=== PATIENT | female | born 1935 | race African-American/Black ===

== ENCOUNTER 2017-07-01 18:17 | Inpatient (IN) ==
[2017-07-01] MEDS ORDERED: SODIUM CHLORIDE 0.9% 500 ML IV STA (18:53)
[2017-07-01] MEDS ORDERED: ASPIRIN 325 MG TABLET PO STA (18:53)
[2017-07-01] MEDS ORDERED: ALUM/MAG/SIMETH/LIDO VISC 1:1 30 ML BOTTLE PO STA (18:53)
[2017-07-01] MEDS ORDERED: ONDANSETRON 4 MG/2 ML VIAL IV STA (18:53)
[2017-07-01] MEDS ORDERED: MORPHINE 2 MG/1 ML SYRINGE IV STA (18:53)
[2017-07-01] MEDS ORDERED: NITROGLYCERIN 2% OINT 1 INCH/GM PACK TOP STA (18:53)
[2017-07-01 19:00] LABS: Basophils % 0.3 % (0.0-0.8); Eosinophils # 0.4 10*3/uL (0.0-0.87); Eosinophils % 3.8 % (0.00-10.9); Hematocrit 26.5 VOL% (35.7-47.0); Hemoglobin 9.1 GM/DL (12.0-16.0); Immature Granulocytes % 0.5 %; Immature Granulocytes Absolute 0.06 #; Lymphocytes # 2.5 10*3/uL (1.4-4.0); Lymphocytes % 21.2 % (21.3-54.2); Mean Corpuscular HGB Conc 34.3 GM/DL (32-36); Mean Corpuscular Hemoglobin 34 PG (27-34); Mean Corpuscular Volume 98.9 FL (87-102); Mean Platelet Volume 11.1 FL (9.6-12.0); Monocytes # 0.9 10*3/uL (0.11-0.8); Monocytes % 7.5 % (1.7-12.7); Neutrophils # 7.8 10*3/uL (1.4-7.4); Neutrophils % 66.7 % (38.7-73.9); Platelet Count 265 T/CUMM (130-400); Red Blood Count 2.68 MC/CUMM (3.8-5.5); Red Cell Distribution Width 13.5 % (9.3-17.3); White Blood Count 11.7 T/CUMM (4-12)
[2017-07-01 19:10] LABS: PT Patient Result 10.5 SECS
[2017-07-01] MEDS ORDERED: ASPIRIN 325 MG TABLET ONE (19:10)
[2017-07-01] MEDS ORDERED: ONDANSETRON 4 MG/2 ML VIAL ONE (19:10)
[2017-07-01] MEDS ORDERED: NITROGLYCERIN 2% OINT 1 INCH/GM PACK TOP ONE (19:10)
[2017-07-01] MEDS ORDERED: MORPHINE 2 MG/1 ML SYRINGE ONE (19:10)
[2017-07-01] MEDS ORDERED: ALUM/MAG/SIMETH/LIDO VISC 1:1 30 ML BOTTLE PO ONE ×2 (19:11→21:59)
[2017-07-01 19:22] LABS: Alanine Aminotransferase 23 U/L (13-56); Albumin 3.2 G/DL (3.4-5.0); Alkaline Phosphatase 66 U/L (45-117); Aspartate Amino Transferase 20 U/L (0-37); Bilirubin,Total < 0.39 MG/DL (0.2-1.0); Blood Urea Nitrogen 38 MG/DL (7-18); Calcium 10.1 MG/DL (8.5-10.1); Glucose 94 MG/DL (74-106); Sodium 143 MMOL/L (136-145); Total Protein 7.1 G/DL (6.4-8.3)
[2017-07-01] MEDS ORDERED: POTASSIUM CHLORIDE 20 MEQ TABLET PO STA (19:31)
[2017-07-01 19:48] LABS: Apearance,Urine CLEAR (Clear); Bacteria,Urine Occasional /HPF (Few); Bilirubin,Urine Negative (Negative); Blood, Urine Negative (Negative); Glucose,Urine (UA) Negative (Negative); Hyaline Casts,Urine 5 /LPF (0-3); Ketones,Urine Negative (Negative); Mucus,Urine Occasional /LPF (Occasional); Nitrite,Urine Negative (Negative); Protein,Urine 30 MG/DL; Squamous Epithelial Cell,Urine Occasional /HPF (0-10); Urine Color Yellow (Yellow); Urine Specific Gravity 1.013 (1.001-1.035); Urine Urobilinogen < 2.0 EU/DL (0.2-1.0); WBC,Urine <1 /HPF (0-6)
[2017-07-01] MEDS ORDERED: POTASSIUM CHLORIDE 20 MEQ TABLET PO ONE (19:49)
[2017-07-01] MEDS ORDERED: ENOXAPARIN 100 MG/ML SYRINGE SUBCUT STA (20:13)
[2017-07-01] MEDS ORDERED: ENOXAPARIN 60 MG/0.6 ML SYRINGE ONE (20:21)
[2017-07-01] MEDS ORDERED: ACETAMINOPHEN 325 MG TABLET PO PRN (21:59)
[2017-07-01] MEDS ORDERED: DEXTROSE 50% 25 GM/50 ML VIAL IV PRN (21:59)
[2017-07-01] MEDS ORDERED: GLUCAGON 1 MG VIAL IM PRN (21:59)
[2017-07-01] MEDS ORDERED: LACTULOSE 20 GM/30 ML UDCUP PO PRN (21:59)
[2017-07-01] MEDS: METOPROLOL TARTRATE 25 MG TABLET PO SCH (21:59)
[2017-07-01] MEDS ORDERED: ZALEPLON 5 MG CAPSULE PO PRN (21:59)
[2017-07-01] MEDS ORDERED: ONDANSETRON 4 MG/2 ML VIAL IV PRN (21:59)
[2017-07-01] MEDS: sulfaSALAzine 500 MG TABLET PO SCH (23:23)
[2017-07-01] MEDS: PANTOPRAZOLE 40 MG TABLET PO SCH (23:23)
[2017-07-01] MEDS: ATORVASTATIN 20 MG TABLET PO SCH (23:24)
[2017-07-01] MEDS: INSULIN LISPRO 100 UNIT/ML SUBCUT SCH (23:24)
[2017-07-01] MEDS: INSULIN NPH/REGULAR 70/30 100 UNIT/ML SUBCUT SCH (23:25)
[2017-07-01] MEDS: SODIUM CHLOR 0.9% KCL 40 MEQ 40 MEQ/1,000 ML BAG IV SCH (23:25)
[2017-07-02 01:09] LABS: Basophils % 0.2 % (0.0-0.8); Eosinophils % 0.2 % (0.00-10.9); Hematocrit 24.8 VOL% (35.7-47.0); Hemoglobin 8.6 GM/DL (12.0-16.0); Immature Granulocytes % 0.5 %; Immature Granulocytes Absolute 0.05 #; Lymphocytes # 1.5 10*3/uL (1.4-4.0); Lymphocytes % 14.7 % (21.3-54.2); Mean Corpuscular HGB Conc 34.7 GM/DL (32-36); Mean Corpuscular Hemoglobin 34 PG (27-34); Mean Corpuscular Volume 99.2 FL (87-102); Mean Platelet Volume 11.1 FL (9.6-12.0); Monocytes # 0.4 10*3/uL (0.11-0.8); Monocytes % 4.3 % (1.7-12.7); Neutrophils # 8.3 10*3/uL (1.4-7.4); Neutrophils % 80.1 % (38.7-73.9); Platelet Count 228 T/CUMM (130-400); Red Cell Distribution Width 13.3 % (9.3-17.3); White Blood Count 10.3 T/CUMM (4-12)
[2017-07-02 01:41] LABS: Calcium 9.6 MG/DL (8.5-10.1); Potassium 5.4 MMOL/L (3.5-5.1); Risk Ratio 4.49; VLDL CHOLESTEROL 35.8 MG/DL
[2017-07-02] MEDS: SODIUM CHLOR 0.9% KCL 40 MEQ 40 MEQ/1,000 ML BAG IV SCH ×2 (05:55→16:05)
[2017-07-02 09:09] LABS: Troponin I Only 0.047 NG/ML (0.00-0.045)
[2017-07-02] MEDS ORDERED: SODIUM CHLORIDE 0.9% 250 ML IV PRN ×2 (10:42→12:09)
[2017-07-02 10:57] LABS: Hematocrit 27.8 VOL% (35.7-47.0); Hemoglobin 9.3 GM/DL (12.0-16.0)
[2017-07-02] MEDS: INSULIN NPH/REGULAR 70/30 100 UNIT/ML SUBCUT SCH ×2 (11:40→21:30)
[2017-07-02] MEDS: HYDROXYCHLOROQUINE 200 MG TABLET PO SCH ×2 (11:40→17:06)
[2017-07-02] MEDS: sulfaSALAzine 500 MG TABLET PO SCH ×2 (13:01→21:30)
[2017-07-02] MEDS: ALLOPURINOL 300 MG TABLET PO SCH (13:01)
[2017-07-02] MEDS: PANTOPRAZOLE 40 MG TABLET PO SCH ×2 (13:01→21:30)
[2017-07-02] MEDS: FOLIC ACID 1 MG TABLET PO SCH (13:01)
[2017-07-02] MEDS: ASPIRIN EC 81 MG TABLET PO SCH (13:02)
[2017-07-02] MEDS: INSULIN LISPRO 100 UNIT/ML SUBCUT SCH ×3 (13:04→21:30)
[2017-07-02] MEDS: amLODIPine 5 MG TABLET PO SCH (18:04)
[2017-07-02 19:03] LABS: Hematocrit 35.1 VOL% (35.7-47.0)
[2017-07-02 19:05] LABS: Hemoglobin 11.7 GM/DL (12.0-16.0)
[2017-07-02] MEDS: METOPROLOL TARTRATE 25 MG TABLET PO SCH (19:36)
[2017-07-02] MEDS ORDERED: ENOXAPARIN 40 MG/0.4 ML SYRINGE SUBCUT SCH (21:00)
[2017-07-02] MEDS: ATORVASTATIN 20 MG TABLET PO SCH (21:29)
[2017-07-02] MEDS: METOPROLOL TARTRATE 50 MG TABLET PO SCH (21:30)
[2017-07-03 03:50] LABS: Basophils % 0.4 % (0.0-0.8); Eosinophils # 0.5 10*3/uL (0.0-0.87); Eosinophils % 5.5 % (0.00-10.9); Hematocrit 34.9 VOL% (35.7-47.0); Hemoglobin 11.7 GM/DL (12.0-16.0); Immature Granulocytes % 0.1 %; Immature Granulocytes Absolute 0.01 #; Lymphocytes # 2.2 10*3/uL (1.4-4.0); Lymphocytes % 26.8 % (21.3-54.2); Mean Corpuscular HGB Conc 33.5 GM/DL (32-36); Mean Corpuscular Hemoglobin 33 PG (27-34); Mean Corpuscular Volume 97.2 FL (87-102); Mean Platelet Volume 11.9 FL (9.6-12.0); Monocytes # 0.7 10*3/uL (0.11-0.8); Monocytes % 7.9 % (1.7-12.7); Neutrophils # 4.9 10*3/uL (1.4-7.4); Neutrophils % 59.3 % (38.7-73.9); Platelet Count 204 T/CUMM (130-400); Red Blood Count 3.59 MC/CUMM (3.8-5.5); Red Cell Distribution Width 15.2 % (9.3-17.3); White Blood Count 8.3 T/CUMM (4-12)
[2017-07-03 04:23] LABS: Calcium 9.8 MG/DL (8.5-10.1); Potassium 4.5 MMOL/L (3.5-5.1)
[2017-07-03] MEDS ORDERED: POTASSIUM CHLORIDE RIDER 10 MEQ in PREMIX 1 EACH IV PRN (08:20)
[2017-07-03] MEDS ORDERED: MAGNESIUM SULF RIDER 2 GM in PREMIX 1 EACH IV PRN (08:20)
[2017-07-03] MEDS ORDERED: diphenhydrAMINE CAP 50 MG CAPSULE PO ONE (08:30)
[2017-07-03] MEDS ORDERED: SODIUM CHLORIDE 0.9% 1,000 ML IV SCH (08:30)
[2017-07-03] MEDS ORDERED: LIDOCAINE 1% 20 ML VIAL ONE (08:55)
[2017-07-03] MEDS ORDERED: fentaNYL 100 MCG/2 ML VIAL ONE (08:55)
[2017-07-03] MEDS ORDERED: HEPARIN/NACL 0.9% 2 UNITS/ML 1,000 ML IV ONE (08:55)
[2017-07-03] MEDS ORDERED: MIDAZOLAM 2 MG/2 ML VIAL ONE (08:55)
[2017-07-03] MEDS ORDERED: DIAZEPAM 5 MG TABLET PO ONE (09:02)
[2017-07-03] MEDS ORDERED: DIAZEPAM 5 MG TABLET ONE (09:04)
[2017-07-03] MEDS: PANTOPRAZOLE 40 MG TABLET PO SCH ×2 (09:07→21:21)
[2017-07-03] MEDS: METOPROLOL TARTRATE 50 MG TABLET PO SCH ×2 (09:07→21:21)
[2017-07-03] MEDS: ASPIRIN EC 81 MG TABLET PO SCH (09:07)
[2017-07-03] MEDS: amLODIPine 5 MG TABLET PO SCH (09:07)
[2017-07-03] MEDS ORDERED: VERAPAMIL 5 MG/2 ML VIAL ONE (09:23)
[2017-07-03] MEDS ORDERED: NITROGLYCERIN DRIP 50 MG/250 ML BOTTLE IV ONE (09:23)
[2017-07-03] MEDS ORDERED: ENOXAPARIN 60 MG/0.6 ML SYRINGE ONE (09:34)
[2017-07-03] MEDS: INSULIN LISPRO 100 UNIT/ML SUBCUT SCH ×4 (11:39→23:08)
[2017-07-03] MEDS: HYDROXYCHLOROQUINE 200 MG TABLET PO SCH ×2 (11:40→16:38)
[2017-07-03] MEDS: ALLOPURINOL 300 MG TABLET PO SCH (12:06)
[2017-07-03] MEDS: INSULIN NPH/REGULAR 70/30 100 UNIT/ML SUBCUT SCH ×2 (12:06→23:08)
[2017-07-03] MEDS: FOLIC ACID 1 MG TABLET PO SCH (12:06)
[2017-07-03] MEDS: sulfaSALAzine 500 MG TABLET PO SCH ×2 (12:06→21:21)
[2017-07-03] MEDS: ATORVASTATIN 20 MG TABLET PO SCH (21:21)
[2017-07-04 05:42] LABS: Basophils % 0.2 % (0.0-0.8); Eosinophils # 0.6 10*3/uL (0.0-0.87); Eosinophils % 6.4 % (0.00-10.9); Hematocrit 35.8 VOL% (35.7-47.0); Hemoglobin 12.1 GM/DL (12.0-16.0); Immature Granulocytes % 0.4 %; Immature Granulocytes Absolute 0.04 #; Lymphocytes # 1.8 10*3/uL (1.4-4.0); Lymphocytes % 19.9 % (21.3-54.2); Mean Corpuscular HGB Conc 33.8 GM/DL (32-36); Mean Corpuscular Hemoglobin 33 PG (27-34); Mean Corpuscular Volume 96.2 FL (87-102); Mean Platelet Volume 10.9 FL (9.6-12.0); Monocytes # 0.7 10*3/uL (0.11-0.8); Monocytes % 8.1 % (1.7-12.7); Neutrophils # 5.8 10*3/uL (1.4-7.4); Platelet Count 195 T/CUMM (130-400); Red Blood Count 3.72 MC/CUMM (3.8-5.5); Red Cell Distribution Width 14.6 % (9.3-17.3)
[2017-07-04 06:15] LABS: Calcium 9.7 MG/DL (8.5-10.1); Osmolality,Calculated 286.1 MOS/KG (273-304); Potassium 3.9 MMOL/L (3.5-5.1)
[2017-07-04] MEDS ORDERED: PROPOFOL 200 MG/20 ML VIAL IV ONE (11:14)
[2017-07-04] MEDS ORDERED: LIDOCAINE 2% 5 ML VIAL ONE (11:14)
[2017-07-04] MEDS: INSULIN LISPRO 100 UNIT/ML SUBCUT SCH ×2 (11:24→13:02)
[2017-07-04 12:06] VITALS: BP 166/82
[2017-07-04] MEDS: HYDROXYCHLOROQUINE 200 MG TABLET PO SCH (13:00)
[2017-07-04] MEDS: FOLIC ACID 1 MG TABLET PO SCH (13:00)
[2017-07-04] MEDS: PANTOPRAZOLE 40 MG TABLET PO SCH (13:01)
[2017-07-04] MEDS: sulfaSALAzine 500 MG TABLET PO SCH (13:01)
[2017-07-04] MEDS: METOPROLOL TARTRATE 50 MG TABLET PO SCH (13:01)
[2017-07-04] MEDS: amLODIPine 5 MG TABLET PO SCH (13:01)
[2017-07-04] MEDS: ALLOPURINOL 300 MG TABLET PO SCH (13:01)
[2017-07-04] MEDS: INSULIN NPH/REGULAR 70/30 100 UNIT/ML SUBCUT SCH (13:02)
[2017-07-04] MEDS: ASPIRIN EC 81 MG TABLET PO SCH (13:02)
== END 2017-07-04 13:49 | disposition home or self-care (01) | DRG 282 ==
LOC: EDUNIT# → EDBD → N.ED 18:17 → N.EDINP 20:45 → N.TELEN 21:12
PROVIDERS: ADMIT Internal Medicine; ATTEND Internal Medicine
PROC: CLCCHCL (ICD-10-PCS; 2017-07-03 09:15)

== ENCOUNTER 2018-09-30 10:05 | Observation (INO) ==
[2018-09-30 10:48] LABS: Basophils % 0.2 % (0.0-0.8); Eosinophils # 0.3 10*3/uL (0.0-0.87); Hematocrit 29.8 VOL% (35.7-47.0); Hemoglobin 9.8 GM/DL (12.0-16.0); Immature Granulocytes % 0.2 %; Immature Granulocytes Absolute 0.02 #; Lymphocytes # 1.2 10*3/uL (1.4-4.0); Mean Corpuscular HGB Conc 32.9 GM/DL (32-36); Mean Corpuscular Hemoglobin 34 PG (27-34); Mean Corpuscular Volume 103.5 FL (87-102); Mean Platelet Volume 11.6 FL (9.6-12.0); Monocytes # 0.5 10*3/uL (0.11-0.8); Monocytes % 6.4 % (1.7-12.7); Neutrophils # 6.3 10*3/uL (1.4-7.4); Neutrophils % 76.2 % (38.7-73.9); Platelet Count 267 T/CUMM (130-400); Red Blood Count 2.88 MC/CUMM (3.8-5.5); Red Cell Distribution Width 14.3 % (9.3-17.3); White Blood Count 8.3 T/CUMM (4-12)
[2018-09-30 10:58] LABS: PT Patient Result 10.6 SECS; Partial Thromboplastin Time 22.9 SECS (0-40)
[2018-09-30 11:07] LABS: Alanine Aminotransferase 43 U/L (13-56); Alkaline Phosphatase 67 U/L (45-117); Aspartate Amino Transferase 39 U/L (0-37); Bilirubin,Total < 0.39 MG/DL (0.2-1.0); Blood Urea Nitrogen 27 MG/DL (7-18); Calcium 9.3 MG/DL (8.5-10.1); Glucose 56 MG/DL (74-106); Osmolality,Calculated 283.3 MOS/KG (273-304); Sodium 141 MMOL/L (136-145); Total Protein 7.5 G/DL (6.4-8.3); Troponin I < 0.015 NG/ML (0.00-0.045)
[2018-09-30] MEDS ORDERED: ASPIRIN 325 MG TABLET PO STA (11:52)
[2018-09-30] MEDS ORDERED: ENOXAPARIN 100 MG/ML SYRINGE SUBCUT STA (11:52)
[2018-09-30] MEDS ORDERED: DOCUSATE SODIUM 100 MG CAPSULE PO PRN (12:56)
[2018-09-30] MEDS ORDERED: ONDANSETRON 4 MG/2 ML VIAL IV PRN (12:56)
[2018-09-30] MEDS ORDERED: ACETAMINOPHEN 325 MG TABLET PO PRN (12:56)
[2018-09-30] MEDS ORDERED: DEXTROSE 50% 25 GM/50 ML VIAL IV PRN (12:56)
[2018-09-30] MEDS ORDERED: GLUCAGON 1 MG VIAL IM PRN (12:56)
[2018-09-30] MEDS ORDERED: amLODIPine 5 MG TABLET PO PRN (13:00)
[2018-09-30] MEDS ORDERED: NITROGLYCERIN SL 0.4 MG TABLET SL PRN (13:11)
[2018-09-30] MEDS ORDERED: MORPHINE 4 MG/1 ML VIAL IV PRN (13:11)
[2018-09-30] MEDS: SERTRALINE 25 MG TABLET PO SCH ×2 (16:14→22:25)
[2018-09-30] MEDS: INSULIN LISPRO 100 UNIT/ML SUBCUT SCH ×3 (16:33→22:24)
[2018-09-30] MEDS: ACEBUTOLOL 200 MG CAPSULE PO SCH (17:16)
[2018-09-30] MEDS ORDERED: INSULIN LISPRO 100 UNIT/ML SUBCUT SCH (19:00)
[2018-09-30] MEDS ORDERED: METOPROLOL TARTRATE 50 MG TABLET PO SCH (21:00)
[2018-09-30] MEDS ORDERED: ATORVASTATIN 80 MG TABLET PO SCH (21:00)
[2018-10-01 05:29] LABS: Basophils % 0.3 % (0.0-0.8); Eosinophils # 0.5 10*3/uL (0.0-0.87); Hematocrit 27.5 VOL% (35.7-47.0); Hemoglobin 8.9 GM/DL (12.0-16.0); Immature Granulocytes % 0.4 %; Immature Granulocytes Absolute 0.03 #; Lymphocytes # 1.6 10*3/uL (1.4-4.0); Lymphocytes % 23.4 % (21.3-54.2); Mean Corpuscular HGB Conc 32.4 GM/DL (32-36); Mean Corpuscular Hemoglobin 34 PG (27-34); Mean Corpuscular Volume 103.4 FL (87-102); Monocytes # 0.6 10*3/uL (0.11-0.8); Monocytes % 8.7 % (1.7-12.7); Neutrophils % 60.2 % (38.7-73.9); Platelet Count 225 T/CUMM (130-400); Red Blood Count 2.66 MC/CUMM (3.8-5.5); Red Cell Distribution Width 14.3 % (9.3-17.3); White Blood Count 6.7 T/CUMM (4-12)
[2018-10-01 05:55] LABS: Calcium 9.3 MG/DL (8.5-10.1); Ferritin 643.7 ng/ml (8-252); Osmolality,Calculated 288.7 MOS/KG (273-304); Potassium 3.9 MMOL/L (3.5-5.1); Risk Ratio 6.82; VLDL CHOLESTEROL 41.2 MG/DL
[2018-10-01 05:57] LABS: Calcium 9.3 MG/DL (8.5-10.1); Osmolality,Calculated 285.8 MOS/KG (273-304); Potassium 3.8 MMOL/L (3.5-5.1)
[2018-10-01 06:07] LABS: Folate 21.1 NG/ML (5.4-24.0); Vitamin B12 366 PG/ML (211-911)
[2018-10-01] MEDS: INSULIN LISPRO 100 UNIT/ML SUBCUT SCH ×3 (08:30→11:52)
[2018-10-01] MEDS ORDERED: DEXTROSE 50% 25 GM/50 ML SYRINGE IV ONE (08:38)
[2018-10-01] MEDS ORDERED: LOSARTAN 50 MG TABLET PO SCH (09:00)
[2018-10-01] MEDS ORDERED: INSULIN GLARGINE 100 UNIT/ML SUBCUT SCH (09:00)
[2018-10-01] MEDS ORDERED: FOLIC ACID 1 MG TABLET PO SCH (09:00)
[2018-10-01] MEDS ORDERED: MULTIVITAMIN (CENTRUM) TABLET PO SCH (09:00)
[2018-10-01] MEDS ORDERED: ENOXAPARIN 40 MG/0.4 ML SYRINGE SUBCUT SCH (09:00)
[2018-10-01] MEDS ORDERED: PANTOPRAZOLE 40 MG TABLET PO SCH (09:00)
[2018-10-01] MEDS ORDERED: ASPIRIN EC 81 MG TABLET PO SCH (09:00)
[2018-10-01] MEDS ORDERED: SPIRONOLACTONE 25 MG TABLET PO SCH (09:00)
[2018-10-01 09:05] LABS: Sedimentation Rate-Westergren 79 MM/HR (0-30)
[2018-10-01] MEDS: ACEBUTOLOL 200 MG CAPSULE PO SCH (11:40)
[2018-10-01] MEDS: METHOTREXATE 2.5 MG TABLET PO SCH ×2 (11:52→13:13)
[2018-10-01 12:20] VITALS: BP 148/87
== END 2018-10-01 15:47 | disposition home or self-care (01) ==
LOC: EDUNIT# → EDBD → N.EDINP 10:05 → N.ED 10:05 → SUATTDRO 12:05 → N.TELES 13:38
PROVIDERS: ADMIT Hospitalist; ATTEND Internal Medicine

== ENCOUNTER 2020-02-29 20:48 | Inpatient (IN) ==
[2020-02-29] MEDS ORDERED: ONDANSETRON 4 MG/2 ML VIAL IV STA (21:23)
[2020-02-29] MEDS ORDERED: ASPIRIN 325 MG TABLET PO STA (21:23)
[2020-02-29] MEDS ORDERED: MORPHINE 4 MG/1 ML VIAL IV STA (21:23)
[2020-02-29] MEDS ORDERED: ALUM/MAG/SIMETH/LIDO VISC 1:1 30 ML BOTTLE PO STA (21:23)
[2020-02-29 21:37] LABS: Basophils % 0.2 % (0.0-0.8); Eosinophils % 0.1 % (0.00-10.9); Hematocrit 27.8 VOL% (35.7-47.0); Hemoglobin 9.1 GM/DL (12.0-16.0); Immature Granulocytes % 0.5 %; Immature Granulocytes Absolute 0.05 #; Lymphocytes # 0.4 10*3/uL (1.4-4.0); Lymphocytes % 3.4 % (21.3-54.2); Mean Corpuscular HGB Conc 32.7 GM/DL (32-36); Mean Corpuscular Volume 99.3 FL (87-102); Mean Platelet Volume 10.4 FL (9.6-12.0); Monocytes % 4.9 % (1.7-12.7); Neutrophils % 90.9 % (38.7-73.9); Platelet Count 215 T/CUMM (130-400); Red Cell Distribution Width 13.8 % (9.3-17.3); White Blood Count 10.9 T/CUMM (4-12)
[2020-02-29 21:57] LABS: PT Patient Result 11.1 SECS (9.8-11.9)
[2020-02-29 21:59] LABS: Ferritin 735.5 ng/ml (8-252); Troponin I < 0.015 NG/ML (0.00-0.045)
[2020-02-29 22:04] LABS: Albumin 3.2 G/DL (3.4-5.0); Bilirubin,Total 0.4 MG/DL (0.2-1.0); Calcium 10.1 MG/DL (8.5-10.1); Osmolality,Calculated 282.7 MOS/KG (273-304); Total Protein 7.9 G/DL (6.4-8.3)
[2020-02-29] MEDS ORDERED: ENOXAPARIN 100 MG/ML SYRINGE SUBCUT STA (22:24)
[2020-02-29] MEDS ORDERED: ENOXAPARIN 60 MG/0.6 ML SYRINGE ONE (22:28)
[2020-02-29 23:14] LABS: Band Neutrophils 3 % (0-10); Lymphocytes 8 % (20-55); Segmented Neutrophils 85 % (50-85); Total Cells Counted 100
[2020-02-29 23:15] LABS: Anisocytosis 1+; Platelet Estimate Normal
[2020-02-29] MEDS ORDERED: PIPERACILLIN/TAZOBACTAM 3,375 MG in SODIUM CHLORIDE 0.9% 100 ML IV STA (23:21)
[2020-02-29] MEDS ORDERED: guaiFENesin/DM ER 600-30 MG TABLET PO PRN (23:36)
[2020-02-29] MEDS ORDERED: MORPHINE 4 MG/1 ML VIAL IV PRN (23:36)
[2020-02-29] MEDS ORDERED: diphenhydrAMINE CAP 25 MG CAPSULE PO PRN (23:36)
[2020-02-29] MEDS ORDERED: DEXTROSE 50% 25 GM/50 ML VIAL IV PRN ×2 (23:36)
[2020-02-29] MEDS ORDERED: NICOTINE 21 MG/24 HR PATCH TRANSDERM PRN (23:36)
[2020-02-29] MEDS ORDERED: ONDANSETRON 4 MG/2 ML VIAL IV PRN (23:36)
[2020-02-29] MEDS ORDERED: hydrALAZINE 20 MG/1 ML VIAL IV PRN (23:36)
[2020-02-29] MEDS ORDERED: GLUCAGON 1 MG VIAL IM PRN (23:36)
[2020-02-29] MEDS ORDERED: ACETAMINOPHEN 325 MG TABLET PO PRN (23:36)
[2020-03-01] MEDS: ALBUTEROL/IPRATROPIUM 3 ML NEB RESP TX SCH ×4 (00:30→19:45)
[2020-03-01] MEDS: INSULIN REGULAR 100 UNIT/ML SUBCUT SCH ×5 (01:09→23:30)
[2020-03-01 07:09] LABS: Apearance,Urine CLEAR (Clear); Bilirubin,Urine Negative (Negative); Blood, Urine Negative (Negative); Glucose,Urine (UA) 50 mg/dL (Negative); Ketones,Urine Negative (Negative); Mucus,Urine Occasional /LPF (Occasional); Nitrite,Urine Positive (Negative); Protein,Urine 100 MG/DL; RBC,Urine 7 /HPF (0-4); Squamous Epithelial Cell,Urine Occasional /HPF (0-10); Urine Color Straw (Yellow); Urine Specific Gravity 1.031 (1.001-1.035); Urine Urobilinogen < 2.0 EU/DL (0.2-1.0); WBC,Urine 16 /HPF (0-6)
[2020-03-01] MEDS: PIPERACILLIN/TAZOBACTAM 3,375 MG in SODIUM CHLORIDE 0.9% 100 ML IV SCH ×3 (07:36→23:29)
[2020-03-01] MEDS: ASPIRIN 325 MG TABLET PO SCH (09:11)
[2020-03-01] MEDS ORDERED: predniSONE 5 MG TABLET PO PRN (14:37)
[2020-03-01] MEDS ORDERED: NITROGLYCERIN SL 0.4 MG TABLET SL ONE (15:04)
[2020-03-01] MEDS ORDERED: MORPHINE 4 MG/1 ML VIAL IV PRN (15:05)
[2020-03-01] MEDS: ROSUVASTATIN 20 MG TABLET PO SCH (20:46)
[2020-03-01] MEDS: SERTRALINE 25 MG TABLET PO SCH (20:48)
[2020-03-02] MEDS: ALBUTEROL/IPRATROPIUM 3 ML NEB RESP TX SCH ×4 (01:27→19:05)
[2020-03-02 05:34] LABS: Basophils % 0.2 % (0.0-0.8); Eosinophils # 0.3 10*3/uL (0.0-0.87); Hematocrit 25.9 VOL% (35.7-47.0); Hemoglobin 8.3 GM/DL (12.0-16.0); Immature Granulocytes % 0.5 %; Immature Granulocytes Absolute 0.05 #; Lymphocytes # 1.2 10*3/uL (1.4-4.0); Lymphocytes % 11.9 % (21.3-54.2); Mean Corpuscular Volume 100.8 FL (87-102); Monocytes % 8.5 % (1.7-12.7); Neutrophils % 75.9 % (38.7-73.9); Platelet Count 203 T/CUMM (130-400); Red Blood Count 2.57 MC/CUMM (3.8-5.5); Red Cell Distribution Width 14.1 % (9.3-17.3); White Blood Count 9.9 T/CUMM (4-12)
[2020-03-02 06:00] LABS: Calcium 9.5 MG/DL (8.5-10.1); Osmolality,Calculated 292.4 MOS/KG (273-304)
[2020-03-02] MEDS: PANTOPRAZOLE 40 MG TABLET PO SCH (06:01)
[2020-03-02] MEDS: INSULIN REGULAR 100 UNIT/ML SUBCUT SCH ×3 (06:25→17:00)
[2020-03-02] MEDS: FOLIC ACID 1 MG TABLET PO SCH (08:57)
[2020-03-02] MEDS: ASPIRIN 325 MG TABLET PO SCH (08:57)
[2020-03-02] MEDS: DOXYCYCLINE HYCLATE 100 MG CAPSULE PO SCH ×2 (08:58→20:36)
[2020-03-02] MEDS: FERROUS SULFATE 325 MG TABLET PO SCH (08:58)
[2020-03-02] MEDS: ACEBUTOLOL 200 MG CAPSULE PO SCH (08:58)
[2020-03-02] MEDS ORDERED: METHOTREXATE 2.5 MG TABLET PO SCH (09:00)
[2020-03-02] MEDS ORDERED: SPIRONOLACTONE 25 MG TABLET PO SCH (09:00)
[2020-03-02] MEDS: PIPERACILLIN/TAZOBACTAM 3,375 MG in SODIUM CHLORIDE 0.9% 100 ML IV SCH ×2 (09:55→14:56)
[2020-03-02] MEDS: ROSUVASTATIN 20 MG TABLET PO SCH (20:36)
[2020-03-02] MEDS: SERTRALINE 25 MG TABLET PO SCH (20:36)
[2020-03-03] MEDS: PIPERACILLIN/TAZOBACTAM 3,375 MG in SODIUM CHLORIDE 0.9% 100 ML IV SCH ×2 (00:02→08:27)
[2020-03-03] MEDS: INSULIN REGULAR 100 UNIT/ML SUBCUT SCH ×4 (00:06→17:44)
[2020-03-03] MEDS: ALBUTEROL/IPRATROPIUM 3 ML NEB RESP TX SCH ×4 (00:45→19:13)
[2020-03-03] MEDS: NITROGLYCERIN SL 0.4 MG TABLET SL PRN ×2 (02:55→03:01)
[2020-03-03 03:07] LABS: Basophils % 0.2 % (0.0-0.8); Eosinophils # 0.3 10*3/uL (0.0-0.87); Eosinophils % 2.7 % (0.00-10.9); Hematocrit 28.4 VOL% (35.7-47.0); Hemoglobin 9.3 GM/DL (12.0-16.0); Immature Granulocytes % 0.5 %; Immature Granulocytes Absolute 0.06 #; Lymphocytes # 0.8 10*3/uL (1.4-4.0); Lymphocytes % 6.6 % (21.3-54.2); Mean Corpuscular HGB Conc 32.7 GM/DL (32-36); Mean Corpuscular Volume 96.9 FL (87-102); Mean Platelet Volume 10.6 FL (9.6-12.0); Monocytes % 5.8 % (1.7-12.7); Neutrophils % 84.2 % (38.7-73.9); Platelet Count 226 T/CUMM (130-400); Red Blood Count 2.93 MC/CUMM (3.8-5.5); Red Cell Distribution Width 13.9 % (9.3-17.3); White Blood Count 11.4 T/CUMM (4-12)
[2020-03-03 03:27] LABS: Calcium 9.7 MG/DL (8.5-10.1); Osmolality,Calculated 286.7 MOS/KG (273-304)
[2020-03-03] MEDS: PANTOPRAZOLE 40 MG TABLET PO SCH (05:57)
[2020-03-03] MEDS: FERROUS SULFATE 325 MG TABLET PO SCH (08:27)
[2020-03-03] MEDS: ASPIRIN 325 MG TABLET PO SCH (08:27)
[2020-03-03] MEDS: FOLIC ACID 1 MG TABLET PO SCH (08:27)
[2020-03-03] MEDS: DOXYCYCLINE HYCLATE 100 MG CAPSULE PO SCH ×2 (08:27→21:45)
[2020-03-03] MEDS: ACEBUTOLOL 200 MG CAPSULE PO SCH (08:27)
[2020-03-03] MEDS ORDERED: cefTRIAXone 2,000 MG in SYRINGE 1 EACH IV SCH (14:00)
[2020-03-03] MEDS: ROSUVASTATIN 20 MG TABLET PO SCH (21:45)
[2020-03-03] MEDS: SERTRALINE 25 MG TABLET PO SCH (21:45)
[2020-03-04] MEDS: INSULIN REGULAR 100 UNIT/ML SUBCUT SCH ×2 (00:39→06:15)
[2020-03-04] MEDS: ALBUTEROL/IPRATROPIUM 3 ML NEB RESP TX SCH ×3 (00:40→12:25)
[2020-03-04 04:35] LABS: Basophils % 0.1 % (0.0-0.8); Eosinophils # 0.3 10*3/uL (0.0-0.87); Eosinophils % 3.7 % (0.00-10.9); Hemoglobin 8.5 GM/DL (12.0-16.0); Immature Granulocytes % 0.7 %; Immature Granulocytes Absolute 0.06 #; Lymphocytes # 1.1 10*3/uL (1.4-4.0); Lymphocytes % 13.2 % (21.3-54.2); Mean Corpuscular HGB Conc 32.7 GM/DL (32-36); Mean Corpuscular Volume 98.5 FL (87-102); Mean Platelet Volume 10.8 FL (9.6-12.0); Monocytes % 4.2 % (1.7-12.7); Neutrophils % 78.1 % (38.7-73.9); Platelet Count 215 T/CUMM (130-400); Red Blood Count 2.64 MC/CUMM (3.8-5.5); Red Cell Distribution Width 13.9 % (9.3-17.3); White Blood Count 8.7 T/CUMM (4-12)
[2020-03-04 04:57] LABS: Calcium 9.4 MG/DL (8.5-10.1); Osmolality,Calculated 285.8 MOS/KG (273-304)
[2020-03-04] MEDS: PANTOPRAZOLE 40 MG TABLET PO SCH (06:34)
[2020-03-04] MEDS: FOLIC ACID 1 MG TABLET PO SCH (08:42)
[2020-03-04] MEDS: ASPIRIN 325 MG TABLET PO SCH (08:42)
[2020-03-04] MEDS: DOXYCYCLINE HYCLATE 100 MG CAPSULE PO SCH (08:42)
[2020-03-04] MEDS: FERROUS SULFATE 325 MG TABLET PO SCH (08:42)
[2020-03-04] MEDS: ACEBUTOLOL 200 MG CAPSULE PO SCH (08:43)
[2020-03-04] MEDS ORDERED: LEVOFLOXACIN 500 MG TABLET PO SCH (09:30)
[2020-03-04 12:09] VITALS: BP 174/69
== END 2020-03-04 13:52 | disposition home or self-care (01) | DRG 871 ==
LOC: N.ED 20:48 → N.EDINP 20:48 → N.TELES 03-01 13:10
PROVIDERS: ADMIT Hospitalist; ATTEND Hospitalist

== ENCOUNTER 2021-10-10 09:59 | Inpatient (IN) ==
[2021-10-10 12:03] LABS: Basophils % 0.2 % (0.0-0.8); Hematocrit 26.1 VOL% (35.7-47.0); Hemoglobin 8.8 GM/DL (12.0-16.0); Immature Granulocytes % 1.3 %; Immature Granulocytes Absolute 0.29 #; Lymphocytes # 0.6 10*3/uL (1.4-4.0); Lymphocytes % 2.5 % (21.3-54.2); Mean Corpuscular HGB Conc 33.7 GM/DL (32-36); Mean Corpuscular Volume 85.3 FL (87-102); Mean Platelet Volume 11.1 FL (9.6-12.0); Monocytes % 5.3 % (1.7-12.7); Neutrophils % 90.7 % (38.7-73.9); Platelet Count 262 T/CUMM (130-400); Red Blood Count 3.06 MC/CUMM (3.8-5.5); White Blood Count 22.7 T/CUMM (4-12)
[2021-10-10 12:10] LABS: Albumin 2.1 G/DL (3.4-5.0); Bilirubin,Total 0.8 MG/DL (0.20-1.00); Calcium 7.2 MG/DL (8.5-10.1); Osmolality,Calculated 277.4 MOS/KG (273-304); Potassium 2.9 MMOL/L (3.5-5.1); Total Protein 6.1 G/DL (6.4-8.2)
[2021-10-10 12:42] LABS: Anisocytosis 1+; Segmented Neutrophils 98 % (50-85); Total Cells Counted 100
[2021-10-10 12:43] LABS: Hypochromia Slight; Ovalocytes Slight
[2021-10-10] MEDS ORDERED: POTASSIUM CHLORIDE 20 MEQ TABLET PO STA (12:51)
[2021-10-10] MEDS ORDERED: DEXTROSE 50% 25 GM/50 ML VIAL IV PRN (12:52)
[2021-10-10] MEDS ORDERED: ONDANSETRON 4 MG/2 ML VIAL IV PRN (12:52)
[2021-10-10] MEDS ORDERED: DEXTROSE 10% 250 ML BAG IV PRN (12:52)
[2021-10-10] MEDS ORDERED: GLUCAGON 1 MG VIAL IM PRN ×2 (12:52)
[2021-10-10] MEDS: SODIUM CHLORIDE 0.9% 1,000 ML IV SCH (16:00)
[2021-10-10] MEDS: PIPERACILLIN/TAZOBACTAM 3,375 MG in SODIUM CHLORIDE 0.9% 100 ML IV SCH (16:00)
[2021-10-10] MEDS: HEPARIN 5,000 UNIT/1 ML VIAL SUBCUT SCH (16:15)
[2021-10-10 19:06] LABS: Bacteria,Urine Occasional /HPF (Few); Bilirubin,Urine Negative (Negative); Blood, Urine Moderate mg/dL (Negative); Glucose,Urine (UA) 150 mg/dL (Negative); Ketones,Urine Negative (Negative); Mucus,Urine Occasional /LPF (Occasional); Nitrite,Urine Positive (Negative); Protein,Urine 100 MG/DL; RBC,Urine 25 /HPF (0-4); Squamous Epithelial Cell,Urine Moderate /HPF (0-10); Urine Appearance CLOUDY (Clear); Urine Color Yellow (Yellow); Urine Specific Gravity 1.011 (1.001-1.035); Urine Urobilinogen < 2.0 EU/DL (<2.0)
[2021-10-10 19:55] LABS: % Iron Saturation 14.4 % (18-50)
[2021-10-10 21:15] LABS: Folate 4.11 NG/ML (5.38-24.0); Vitamin B12 > 2000 PG/ML (211-911)
[2021-10-10] MEDS: INSULIN LISPRO 100 UNIT/ML SUBCUT SCH ×2 (22:27→22:29)
[2021-10-10] MEDS: VANCOMYCIN INJ 750 MG in SODIUM CHLORIDE 0.9% 250 ML IV SCH (22:36)
[2021-10-11] MEDS: PIPERACILLIN/TAZOBACTAM 3,375 MG in SODIUM CHLORIDE 0.9% 100 ML IV SCH ×3 (00:34→15:36)
[2021-10-11] MEDS: HEPARIN 5,000 UNIT/1 ML VIAL SUBCUT SCH ×2 (00:36→13:34)
[2021-10-11 05:55] LABS: Basophils % 0.2 % (0.0-0.8); Hematocrit 23.8 VOL% (35.7-47.0); Hemoglobin 7.9 GM/DL (12.0-16.0); Immature Granulocytes Absolute 0.18 #; Lymphocytes # 0.5 10*3/uL (1.4-4.0); Lymphocytes % 2.7 % (21.3-54.2); Mean Corpuscular HGB Conc 33.2 GM/DL (32-36); Mean Corpuscular Volume 85.6 FL (87-102); Mean Platelet Volume 10.3 FL (9.6-12.0); Monocytes % 6.5 % (1.7-12.7); Neutrophils % 89.6 % (38.7-73.9); Platelet Count 190 T/CUMM (130-400); Red Blood Count 2.78 MC/CUMM (3.8-5.5); Red Cell Distribution Width 20.2 % (9.3-17.3); White Blood Count 17.9 T/CUMM (4-12)
[2021-10-11 06:18] LABS: Risk Ratio 1.88; VLDL Cholesterol 13.6 MG/DL
[2021-10-11 06:19] LABS: Albumin 1.7 G/DL (3.4-5.0); Bilirubin,Total 0.6 MG/DL (0.20-1.00); Calcium 7.3 MG/DL (8.5-10.1); Osmolality,Calculated 280.7 MOS/KG (273-304); Potassium 2.9 MMOL/L (3.5-5.1); Total Protein 5.6 G/DL (6.4-8.2)
[2021-10-11 06:21] LABS: Lymphocytes 2 % (20-55); Segmented Neutrophils 96 % (50-85); Total Cells Counted 100
[2021-10-11 06:22] LABS: Acanthocytes Few; Hypochromia 1+; Microcytosis 1+; Ovalocytes Slight
[2021-10-11] MEDS ORDERED: MAGNESIUM SULF RIDER 4 GM/100 ML PREMIX IV PRN (07:46)
[2021-10-11] MEDS ORDERED: MAGNESIUM SULF RIDER 2 GM/50 ML PREMIX IV PRN (07:46)
[2021-10-11] MEDS: INSULIN LISPRO 100 UNIT/ML SUBCUT SCH ×4 (08:19→21:37)
[2021-10-11] MEDS: POTASSIUM CHLORIDE 20 MEQ TABLET PO PRN ×3 (09:09→17:30)
[2021-10-11] MEDS: PANTOPRAZOLE 40 MG TABLET PO SCH (09:09)
[2021-10-11] MEDS: SODIUM CHLORIDE 0.9% 1,000 ML IV SCH ×2 (09:11→17:30)
[2021-10-11] MEDS: HYDROXYCHLOROQUINE 200 MG TABLET PO SCH (21:13)
[2021-10-11] MEDS: ROSUVASTATIN 20 MG TABLET PO SCH (21:13)
[2021-10-11] MEDS: MENTHOL/ZINC OXIDE OINT 71 GM JAR TOP SCH (21:13)
[2021-10-11] MEDS: SERTRALINE 25 MG TABLET PO SCH (21:13)
[2021-10-11] MEDS: VANCOMYCIN INJ 750 MG in SODIUM CHLORIDE 0.9% 250 ML IV SCH (22:57)
[2021-10-12] MEDS: PIPERACILLIN/TAZOBACTAM 3,375 MG in SODIUM CHLORIDE 0.9% 100 ML IV SCH ×3 (00:01→16:10)
[2021-10-12] MEDS: HEPARIN 5,000 UNIT/1 ML VIAL SUBCUT SCH ×2 (01:45→13:17)
[2021-10-12 06:33] LABS: Basophils % 0.2 % (0.0-0.8); Hematocrit 22.6 VOL% (35.7-47.0); Hemoglobin 7.4 GM/DL (12.0-16.0); Immature Granulocytes Absolute 0.17 #; Lymphocytes # 0.7 10*3/uL (1.4-4.0); Mean Corpuscular HGB Conc 32.7 GM/DL (32-36); Mean Corpuscular Volume 86.6 FL (87-102); Mean Platelet Volume 11.2 FL (9.6-12.0); Monocytes % 5.6 % (1.7-12.7); Neutrophils % 89.2 % (38.7-73.9); Platelet Count 212 T/CUMM (130-400); Red Blood Count 2.61 MC/CUMM (3.8-5.5); Red Cell Distribution Width 20.5 % (9.3-17.3); White Blood Count 17.1 T/CUMM (4-12)
[2021-10-12 06:57] LABS: Calcium 7.1 MG/DL (8.5-10.1); Osmolality,Calculated 285.1 MOS/KG (273-304); Potassium 2.9 MMOL/L (3.5-5.1)
[2021-10-12 07:39] LABS: Anisocytosis 1+; Band Neutrophils 2 % (0-10); Lymphocytes 7 % (20-55); Metamyelocytes 2 %; Myelocytes 1 %; Platelet Estimate Normal; Segmented Neutrophils 83 % (50-85); Total Cells Counted 100
[2021-10-12 07:40] LABS: Burr Cells Few; Ovalocytes Few; Poikilocytosis 1+
[2021-10-12] MEDS: INSULIN LISPRO 100 UNIT/ML SUBCUT SCH ×4 (08:38→21:11)
[2021-10-12] MEDS ORDERED: amLODIPine 5 MG TABLET PO SCH (09:00)
[2021-10-12] MEDS ORDERED: LOSARTAN 50 MG TABLET PO SCH (09:00)
[2021-10-12] MEDS: POTASSIUM CHLORIDE 20 MEQ TABLET PO PRN ×3 (09:39→16:16)
[2021-10-12] MEDS: POTASSIUM CHLORIDE 20 MEQ TABLET PO SCH (09:39)
[2021-10-12] MEDS: ASPIRIN EC 81 MG TABLET PO SCH (09:42)
[2021-10-12] MEDS: PANTOPRAZOLE 40 MG TABLET PO SCH (09:42)
[2021-10-12] MEDS: FERROUS SULFATE 325 MG TABLET PO SCH (09:42)
[2021-10-12] MEDS: MIDODRINE 5 MG TABLET PO SCH (09:42)
[2021-10-12] MEDS: HYDROXYCHLOROQUINE 200 MG TABLET PO SCH ×2 (09:42→21:11)
[2021-10-12] MEDS: INSULIN GLARGINE 100 UNIT/ML SUBCUT SCH (09:45)
[2021-10-12] MEDS: MENTHOL/ZINC OXIDE OINT 71 GM JAR TOP SCH ×2 (09:45→21:11)
[2021-10-12] MEDS: SODIUM CHLORIDE 0.9% 1,000 ML IV SCH ×2 (12:02→17:45)
[2021-10-12] MEDS: SERTRALINE 25 MG TABLET PO SCH (21:10)
[2021-10-12] MEDS: TOBRAMYCIN 0.3% OPH OINT 3.5 GM TUBE RIGHT EYE SCH (21:11)
[2021-10-12] MEDS: ROSUVASTATIN 20 MG TABLET PO SCH (21:11)
[2021-10-12] MEDS: VANCOMYCIN INJ 750 MG in SODIUM CHLORIDE 0.9% 250 ML IV SCH (23:00)
[2021-10-13] MEDS: HEPARIN 5,000 UNIT/1 ML VIAL SUBCUT SCH ×2 (00:43→12:45)
[2021-10-13] MEDS: SODIUM CHLORIDE 0.9% 1,000 ML IV SCH ×3 (03:03→21:01)
[2021-10-13] MEDS: PIPERACILLIN/TAZOBACTAM 3,375 MG in SODIUM CHLORIDE 0.9% 100 ML IV SCH ×2 (06:44)
[2021-10-13 07:50] LABS: Basophils % 0.1 % (0.0-0.8); Hematocrit 24.9 VOL% (35.7-47.0); Hemoglobin 8.2 GM/DL (12.0-16.0); Immature Granulocytes % 0.7 %; Immature Granulocytes Absolute 0.12 #; Lymphocytes # 0.8 10*3/uL (1.4-4.0); Lymphocytes % 4.7 % (21.3-54.2); Mean Corpuscular HGB Conc 32.9 GM/DL (32-36); Mean Corpuscular Volume 87.1 FL (87-102); Mean Platelet Volume 10.8 FL (9.6-12.0); Monocytes % 5.8 % (1.7-12.7); Neutrophils % 88.7 % (38.7-73.9); Platelet Count 234 T/CUMM (130-400); Red Blood Count 2.86 MC/CUMM (3.8-5.5); Red Cell Distribution Width 20.9 % (9.3-17.3); White Blood Count 16.3 T/CUMM (4-12)
[2021-10-13 08:03] LABS: Calcium 6.5 MG/DL (8.5-10.1); Potassium 3.6 MMOL/L (3.5-5.1)
[2021-10-13] MEDS: INSULIN GLARGINE 100 UNIT/ML SUBCUT SCH (08:47)
[2021-10-13] MEDS: INSULIN LISPRO 100 UNIT/ML SUBCUT SCH ×4 (08:57→21:01)
[2021-10-13 09:18] LABS: Anisocytosis 1+; Band Neutrophils 3 % (0-10); Burr Cells 1+; Lymphocytes 7 % (20-55); Platelet Estimate Normal; Poikilocytosis 1+; Segmented Neutrophils 84 % (50-85); Total Cells Counted 100
[2021-10-13 09:19] LABS: Ovalocytes 1+
[2021-10-13] MEDS: PANTOPRAZOLE 40 MG TABLET PO SCH (09:34)
[2021-10-13] MEDS: ASPIRIN EC 81 MG TABLET PO SCH (09:34)
[2021-10-13] MEDS: TOBRAMYCIN 0.3% OPH OINT 3.5 GM TUBE RIGHT EYE SCH ×3 (09:34→21:02)
[2021-10-13] MEDS: FERROUS SULFATE 325 MG TABLET PO SCH (09:34)
[2021-10-13] MEDS: HYDROXYCHLOROQUINE 200 MG TABLET PO SCH ×2 (09:34→21:01)
[2021-10-13] MEDS: MENTHOL/ZINC OXIDE OINT 71 GM JAR TOP SCH ×2 (09:34→21:01)
[2021-10-13] MEDS: POTASSIUM CHLORIDE 20 MEQ TABLET PO SCH (09:34)
[2021-10-13] MEDS: MIDODRINE 5 MG TABLET PO SCH (09:34)
[2021-10-13] MEDS ORDERED: VANCOMYCIN INJ 750 MG in SODIUM CHLORIDE 0.9% 250 ML IV SCH (17:00)
[2021-10-13] MEDS: SERTRALINE 25 MG TABLET PO SCH (21:01)
[2021-10-13] MEDS: ACETAMINOPHEN 325 MG TABLET PO PRN (21:02)
[2021-10-14] MEDS: HEPARIN 5,000 UNIT/1 ML VIAL SUBCUT SCH ×2 (01:32→15:19)
[2021-10-14 06:55] LABS: Basophils % 0.2 % (0.0-0.8); Hematocrit 24.1 VOL% (35.7-47.0); Hemoglobin 7.8 GM/DL (12.0-16.0); Immature Granulocytes % 0.8 %; Immature Granulocytes Absolute 0.12 #; Lymphocytes # 1.1 10*3/uL (1.4-4.0); Lymphocytes % 7.3 % (21.3-54.2); Mean Corpuscular HGB Conc 32.4 GM/DL (32-36); Mean Corpuscular Volume 87.6 FL (87-102); Mean Platelet Volume 11.4 FL (9.6-12.0); Monocytes % 6.8 % (1.7-12.7); Neutrophils % 84.9 % (38.7-73.9); Platelet Count 255 T/CUMM (130-400); Red Blood Count 2.75 MC/CUMM (3.8-5.5); Red Cell Distribution Width 21.5 % (9.3-17.3); White Blood Count 15.3 T/CUMM (4-12)
[2021-10-14] MEDS: ASPIRIN EC 81 MG TABLET PO SCH (08:33)
[2021-10-14] MEDS: FERROUS SULFATE 325 MG TABLET PO SCH (08:33)
[2021-10-14] MEDS: PANTOPRAZOLE 40 MG TABLET PO SCH (08:33)
[2021-10-14] MEDS: TOBRAMYCIN 0.3% OPH OINT 3.5 GM TUBE RIGHT EYE SCH ×3 (08:33→20:56)
[2021-10-14] MEDS: POTASSIUM CHLORIDE 20 MEQ TABLET PO SCH (08:33)
[2021-10-14] MEDS: HYDROXYCHLOROQUINE 200 MG TABLET PO SCH ×2 (08:33→20:56)
[2021-10-14] MEDS: MIDODRINE 5 MG TABLET PO SCH (08:33)
[2021-10-14] MEDS: MENTHOL/ZINC OXIDE OINT 71 GM JAR TOP SCH ×2 (08:34→20:57)
[2021-10-14 08:58] LABS: Calcium 6.4 MG/DL (8.5-10.1); Osmolality,Calculated 277.1 MOS/KG (273-304); Potassium 4.6 MMOL/L (3.5-5.1)
[2021-10-14] MEDS: INSULIN LISPRO 100 UNIT/ML SUBCUT SCH ×4 (09:19→20:57)
[2021-10-14] MEDS: LOPERAMIDE 2 MG CAPSULE PO PRN ×3 (09:58→20:57)
[2021-10-14] MEDS: SODIUM CHLORIDE 0.9% 1,000 ML IV SCH ×2 (15:36→16:47)
[2021-10-14] MEDS: ACETAMINOPHEN 325 MG TABLET PO PRN (17:28)
[2021-10-14] MEDS: SERTRALINE 25 MG TABLET PO SCH (20:56)
[2021-10-15] MEDS: HEPARIN 5,000 UNIT/1 ML VIAL SUBCUT SCH ×2 (02:17→13:53)
[2021-10-15] MEDS: SODIUM CHLORIDE 0.9% 1,000 ML IV SCH ×2 (02:17→13:53)
[2021-10-15] MEDS: ACETAMINOPHEN 325 MG TABLET PO PRN (07:07)
[2021-10-15] MEDS: INSULIN LISPRO 100 UNIT/ML SUBCUT SCH ×2 (07:42→12:19)
[2021-10-15] MEDS: ASPIRIN EC 81 MG TABLET PO SCH (08:46)
[2021-10-15] MEDS: MENTHOL/ZINC OXIDE OINT 71 GM JAR TOP SCH (08:46)
[2021-10-15] MEDS: LOPERAMIDE 2 MG CAPSULE PO PRN (08:46)
[2021-10-15] MEDS: HYDROXYCHLOROQUINE 200 MG TABLET PO SCH (08:46)
[2021-10-15] MEDS: FERROUS SULFATE 325 MG TABLET PO SCH (08:46)
[2021-10-15] MEDS: MIDODRINE 5 MG TABLET PO SCH (08:46)
[2021-10-15] MEDS: TOBRAMYCIN 0.3% OPH OINT 3.5 GM TUBE RIGHT EYE SCH (08:46)
[2021-10-15] MEDS: POTASSIUM CHLORIDE 20 MEQ TABLET PO SCH (08:46)
[2021-10-15] MEDS: PANTOPRAZOLE 40 MG TABLET PO SCH (08:46)
[2021-10-15 09:59] LABS: Basophils % 0.1 % (0.0-0.8); Hematocrit 22.8 VOL% (35.7-47.0); Hemoglobin 7.5 GM/DL (12.0-16.0); Immature Granulocytes % 0.6 %; Lymphocytes # 0.9 10*3/uL (1.4-4.0); Lymphocytes % 5.3 % (21.3-54.2); Mean Corpuscular HGB Conc 32.9 GM/DL (32-36); Mean Platelet Volume 10.5 FL (9.6-12.0); Monocytes % 6.6 % (1.7-12.7); Neutrophils % 87.4 % (38.7-73.9); Platelet Count 248 T/CUMM (130-400); Red Blood Count 2.65 MC/CUMM (3.8-5.5); Red Cell Distribution Width 21.4 % (9.3-17.3); White Blood Count 16.9 T/CUMM (4-12)
[2021-10-15 10:26] LABS: Calcium 5.9 MG/DL (8.5-10.1); Osmolality,Calculated 279.1 MOS/KG (273-304)
[2021-10-15 12:23] VITALS: BP 142/43
[2021-10-16] MEDS ORDERED: DEXAMETHASONE 4 MG TABLET PO SCH (09:00)
== END 2021-10-15 14:00 | disposition home health service (06) | DRG 637 ==
LOC: N.ED 09:59 → SUATTDRO 12:52 → N.EDINP 12:52 → N.3E 19:20
PROVIDERS: ADMIT Internal Medicine; ATTEND Hospitalist

== ENCOUNTER 2021-10-22 02:46 | Inpatient (IN) ==
[2021-10-22 04:39] LABS: Basophils % 0.2 % (0.0-0.8); Hematocrit 23.1 VOL% (35.7-47.0); Hemoglobin 7.4 GM/DL (12.0-16.0); Immature Granulocytes % 0.5 %; Immature Granulocytes Absolute 0.06 #; Lymphocytes # 0.7 10*3/uL (1.4-4.0); Lymphocytes % 6.1 % (21.3-54.2); Mean Corpuscular Volume 89.9 FL (87-102); Mean Platelet Volume 9.8 FL (9.6-12.0); Monocytes % 6.8 % (1.7-12.7); Neutrophils % 86.4 % (38.7-73.9); Platelet Count 363 T/CUMM (130-400); Red Blood Count 2.57 MC/CUMM (3.8-5.5); White Blood Count 11.6 T/CUMM (4-12)
[2021-10-22 04:52] LABS: INR 1.1; PT Patient Result 12.7 SECS (10.5-12.0)
[2021-10-22 05:07] LABS: Alanine Aminotransferase 26 U/L (13-56); Alkaline Phosphatase 152 U/L (45-117); Aspartate Amino Transferase 20 U/L (0-37); Bilirubin,Total < 0.39 MG/DL (0.20-1.00); Blood Urea Nitrogen 11 MG/DL (7-18); Calcium 6.8 MG/DL (8.5-10.1); Carbon Dioxide 22 MMOL/L (21-32); Estimated Glom Filtration Rate 44 ML/MIN; Glucose 149 MG/DL (74-106); Osmolality,Calculated 282.3 MOS/KG (273-304); Potassium 4.6 MMOL/L (3.5-5.1); Sodium 141 MMOL/L (136-145); Total Protein 5.8 G/DL (6.4-8.2)
[2021-10-22 05:31] LABS: Hypochromia 1+; Microcytosis 1+
[2021-10-22 05:32] LABS: Ovalocytes Few; Platelet Estimate Normal; Target Cells Slight
[2021-10-22] MEDS ORDERED: ASPIRIN CHEW 81 MG TABLET PO ONE (06:45)
[2021-10-22] MEDS ORDERED: DEXTROSE 10% 25 GM/250 ML BAG IV PRN (06:45)
[2021-10-22] MEDS ORDERED: GLUCAGON 1 MG VIAL IM PRN (06:45)
[2021-10-22] MEDS ORDERED: ONDANSETRON 4 MG/2 ML VIAL IV PRN (06:45)
[2021-10-22] MEDS ORDERED: ENOXAPARIN 40 MG/0.4 ML SYRINGE SUBCUT ONE (06:45)
[2021-10-22] MEDS ORDERED: NITROGLYCERIN SL 0.4 MG TABLET SL PRN (06:53)
[2021-10-22] MEDS ORDERED: ACETAMINOPHEN 325 MG TABLET PO PRN (06:53)
[2021-10-22] MEDS ORDERED: MAGNESIUM SULF RIDER 2 GM/50 ML PREMIX IV ONE ×2 (07:17→07:21)
[2021-10-22] MEDS: cefTRIAXone 1,000 MG in SODIUM CHLORIDE 0.9% 100 ML IV SCH (08:39)
[2021-10-22] MEDS: SODIUM CHLORIDE 0.45% 1,000 ML IV SCH ×2 (08:39→23:44)
[2021-10-22] MEDS: INSULIN REGULAR 100 UNIT/ML SUBCUT SCH ×4 (08:41→20:52)
[2021-10-22] MEDS ORDERED: PANTOPRAZOLE 40 MG TABLET PO SCH ×2 (09:00)
[2021-10-22] MEDS ORDERED: LENALIDOMIDE 15 MG PO SCH (09:00)
[2021-10-22] MEDS ORDERED: [UNRECOGNIZED DRUG - OTHER] SUBCUT SCH (09:00)
[2021-10-22] MEDS ORDERED: INSULIN P SUBCUT SCH (09:00)
[2021-10-22] MEDS ORDERED: PANTOPRAZOLE 40 MG VIAL IV SCH (09:00)
[2021-10-22] MEDS ORDERED: INSULIN DEGLUDEC 200 UNIT/ML SUBCUT SCH (09:00)
[2021-10-22] MEDS ORDERED: SPIRONOLACTONE 25 MG TABLET PO SCH (09:00)
[2021-10-22] MEDS ORDERED: MIDODRINE 5 MG TABLET PO SCH (09:00)
[2021-10-22] MEDS ORDERED: HYDROXYCHLOROQUINE 200 MG TABLET PO SCH (09:00)
[2021-10-22] MEDS: ACEBUTOLOL 200 MG CAPSULE PO SCH (09:29)
[2021-10-22] MEDS: TOBRAMYCIN 0.3% OPH OINT 3.5 GM TUBE RIGHT EYE SCH ×3 (09:29→21:04)
[2021-10-22] MEDS: FERROUS SULFATE 325 MG TABLET PO SCH (09:29)
[2021-10-22] MEDS: PANTOPRAZOLE 40 MG VIAL IV SCH ×2 (09:29→21:04)
[2021-10-22] MEDS: LOSARTAN 25 MG TABLET PO SCH (13:17)
[2021-10-22] MEDS: SERTRALINE 25 MG TABLET PO SCH (21:00)
[2021-10-22] MEDS: ROSUVASTATIN 20 MG TABLET PO SCH (21:00)
[2021-10-23 03:40] LABS: INR 1.1; PT Patient Result 12.5 SECS (10.5-12.0); Partial Thromboplastin Time 24.2 SECS (23.8-32.1)
[2021-10-23 03:52] LABS: Calcium 6.3 MG/DL (8.5-10.1); Osmolality,Calculated 269.8 MOS/KG (273-304); Potassium 4.4 MMOL/L (3.5-5.1)
[2021-10-23 05:35] LABS: Basophils % 0.1 % (0.0-0.8); Hematocrit 22.4 VOL% (35.7-47.0); Hemoglobin 7.1 GM/DL (12.0-16.0); Immature Granulocytes % 0.4 %; Immature Granulocytes Absolute 0.03 #; Lymphocytes # 0.8 10*3/uL (1.4-4.0); Lymphocytes % 9.8 % (21.3-54.2); Mean Corpuscular HGB Conc 31.7 GM/DL (32-36); Mean Corpuscular Volume 91.1 FL (87-102); Mean Platelet Volume 10.2 FL (9.6-12.0); Monocytes % 7.8 % (1.7-12.7); Neutrophils % 81.9 % (38.7-73.9); Platelet Count 373 T/CUMM (130-400); Red Blood Count 2.46 MC/CUMM (3.8-5.5); Red Cell Distribution Width 23.3 % (9.3-17.3); White Blood Count 8.3 T/CUMM (4-12)
[2021-10-23] MEDS ORDERED: DEXAMETHASONE 4 MG TABLET PO SCH (06:53)
[2021-10-23] MEDS ORDERED: MAGNESIUM SULF RIDER 2 GM/50 ML PREMIX IV ONE (07:25)
[2021-10-23] MEDS: INSULIN REGULAR 100 UNIT/ML SUBCUT SCH ×4 (08:33→23:21)
[2021-10-23] MEDS: cefTRIAXone 1,000 MG in SODIUM CHLORIDE 0.9% 100 ML IV SCH (08:33)
[2021-10-23] MEDS ORDERED: CHOLECALCIFEROL 5,000 UNIT TABLET PO SCH (09:00)
[2021-10-23] MEDS: TOBRAMYCIN 0.3% OPH OINT 3.5 GM TUBE RIGHT EYE SCH ×3 (09:25→21:38)
[2021-10-23] MEDS: ASPIRIN EC 325 MG TABLET PO SCH (09:25)
[2021-10-23] MEDS: FERROUS SULFATE 325 MG TABLET PO SCH (09:25)
[2021-10-23] MEDS: LOSARTAN 25 MG TABLET PO SCH (09:25)
[2021-10-23] MEDS: ACEBUTOLOL 200 MG CAPSULE PO SCH (09:25)
[2021-10-23] MEDS: PANTOPRAZOLE 40 MG VIAL IV SCH ×2 (09:26→21:39)
[2021-10-23] MEDS: CHOLECALCIFEROL 5,000 UNIT TABLET PO SCH ×2 (10:15→21:38)
[2021-10-23] MEDS: SODIUM CHLORIDE 0.45% 1,000 ML IV SCH (10:29)
[2021-10-23] MEDS: GABAPENTIN 100 MG CAPSULE PO SCH ×2 (17:07→21:38)
[2021-10-23] MEDS: ROSUVASTATIN 20 MG TABLET PO SCH (21:38)
[2021-10-23] MEDS: SERTRALINE 25 MG TABLET PO SCH (21:38)
[2021-10-23] MEDS: CALCIUM (CARBONATE) 500 MG TABLET PO SCH (21:42)
[2021-10-24] MEDS: SODIUM CHLORIDE 0.45% 1,000 ML IV SCH ×2 (00:53→13:20)
[2021-10-24 05:25] LABS: Hematocrit 21.1 VOL% (35.7-47.0); Hemoglobin 6.9 GM/DL (12.0-16.0); Immature Granulocytes % 0.7 %; Immature Granulocytes Absolute 0.08 #; Lymphocytes # 0.5 10*3/uL (1.4-4.0); Lymphocytes % 3.9 % (21.3-54.2); Mean Corpuscular HGB Conc 32.7 GM/DL (32-36); Mean Platelet Volume 9.8 FL (9.6-12.0); Monocytes % 5.6 % (1.7-12.7); Neutrophils % 89.8 % (38.7-73.9); Platelet Count 343 T/CUMM (130-400); Red Blood Count 2.37 MC/CUMM (3.8-5.5); Red Cell Distribution Width 22.7 % (9.3-17.3); White Blood Count 11.7 T/CUMM (4-12)
[2021-10-24 05:52] LABS: Calcium 6.2 MG/DL (8.5-10.1); Osmolality,Calculated 274.5 MOS/KG (273-304); Potassium 3.9 MMOL/L (3.5-5.1)
[2021-10-24 05:54] LABS: Band Neutrophils 1 % (0-10); Hypochromia 1+; Lymphocytes 2 % (20-55); Microcytosis 1+; Ovalocytes Slight; Platelet Estimate Normal; Segmented Neutrophils 93 % (50-85); Target Cells Slight; Total Cells Counted 100
[2021-10-24] MEDS: ASPIRIN EC 325 MG TABLET PO SCH (08:07)
[2021-10-24] MEDS: FERROUS SULFATE 325 MG TABLET PO SCH (08:07)
[2021-10-24] MEDS: CHOLECALCIFEROL 5,000 UNIT TABLET PO SCH ×2 (08:07→21:38)
[2021-10-24] MEDS: PANTOPRAZOLE 40 MG VIAL IV SCH ×2 (08:08→21:37)
[2021-10-24] MEDS: LOSARTAN 25 MG TABLET PO SCH (08:08)
[2021-10-24] MEDS: GABAPENTIN 100 MG CAPSULE PO SCH ×3 (08:08→21:38)
[2021-10-24] MEDS: CALCIUM (CARBONATE) 500 MG TABLET PO SCH ×2 (08:08→21:38)
[2021-10-24] MEDS: cefTRIAXone 1,000 MG in SODIUM CHLORIDE 0.9% 100 ML IV SCH (08:09)
[2021-10-24] MEDS ORDERED: SODIUM CHLORIDE 0.9% 1,000 ML IV PRN (08:20)
[2021-10-24] MEDS ORDERED: FUROSEMIDE 40 MG/4 ML VIAL IV ONE (08:22)
[2021-10-24] MEDS: INSULIN REGULAR 100 UNIT/ML SUBCUT SCH ×4 (08:27→21:28)
[2021-10-24] MEDS: TOBRAMYCIN 0.3% OPH OINT 3.5 GM TUBE RIGHT EYE SCH ×3 (08:27→21:25)
[2021-10-24] MEDS: ACEBUTOLOL 200 MG CAPSULE PO SCH (10:46)
[2021-10-24] MEDS: SERTRALINE 25 MG TABLET PO SCH (21:24)
[2021-10-24 21:39] LABS: Hematocrit 34.2 VOL% (35.7-47.0); Hemoglobin 11.1 GM/DL (12.0-16.0)
[2021-10-25 05:43] LABS: Basophils % 0.1 % (0.0-0.8); Hematocrit 35.3 VOL% (35.7-47.0); Hemoglobin 11.5 GM/DL (12.0-16.0); Immature Granulocytes % 0.7 %; Immature Granulocytes Absolute 0.07 #; Lymphocytes # 0.8 10*3/uL (1.4-4.0); Lymphocytes % 7.3 % (21.3-54.2); Mean Corpuscular HGB Conc 32.6 GM/DL (32-36); Mean Platelet Volume 9.5 FL (9.6-12.0); Monocytes % 6.3 % (1.7-12.7); Neutrophils % 85.6 % (38.7-73.9); Platelet Count 314 T/CUMM (130-400); Red Blood Count 4.01 MC/CUMM (3.8-5.5); Red Cell Distribution Width 19.5 % (9.3-17.3); White Blood Count 10.8 T/CUMM (4-12)
[2021-10-25 06:02] LABS: Calcium 6.2 MG/DL (8.5-10.1); Osmolality,Calculated 286.6 MOS/KG (273-304); Potassium 3.3 MMOL/L (3.5-5.1)
[2021-10-25] MEDS ORDERED: LIDOCAINE 1% 50 ML VIAL ONE (06:26)
[2021-10-25] MEDS: ACEBUTOLOL 200 MG CAPSULE PO SCH ×2 (06:32→09:00)
[2021-10-25] MEDS ORDERED: DEXAMETHASONE 4 MG/1 ML VIAL ONE (06:37)
[2021-10-25] MEDS ORDERED: propofoL 200 MG/20 ML VIAL IV ONE (06:37)
[2021-10-25] MEDS ORDERED: SEVOFLURANE 1 UNIT/15 MINUTE INH ONE ×2 (06:37→08:59)
[2021-10-25] MEDS ORDERED: ACETAMINOPHEN INJ 1,000 MG/100 ML VIAL IV ONE (06:37)
[2021-10-25] MEDS ORDERED: LIDOCAINE 2% 5 ML VIAL ONE (06:37)
[2021-10-25] MEDS ORDERED: ONDANSETRON 4 MG/2 ML VIAL ONE (06:37)
[2021-10-25] MEDS ORDERED: ETOMIDATE 40 MG/20 ML VIAL IV ONE (06:40)
[2021-10-25] MEDS ORDERED: fentaNYL 100 MCG/2 ML VIAL ONE (06:42)
[2021-10-25] MEDS ORDERED: DEXTROSE 50% 25 GM/50 ML SYRINGE IV ONE (07:08)
[2021-10-25] MEDS ORDERED: LACTATED RINGERS 1,000 ML IV SCH (07:30)
[2021-10-25] MEDS ORDERED: POTASSIUM CHLORIDE 20 MEQ TABLET PO ONE (08:00)
[2021-10-25] MEDS ORDERED: MAGNESIUM SULF RIDER 2 GM/50 ML PREMIX IV ONE (08:00)
[2021-10-25] MEDS: INSULIN REGULAR 100 UNIT/ML SUBCUT SCH ×4 (08:23→22:11)
[2021-10-25] MEDS ORDERED: cefTRIAXone 1,000 MG VIAL ONE (08:46)
[2021-10-25] MEDS ORDERED: PHENYLEPHRINE 1 MG/10 ML SYRINGE IV ONE (08:56)
[2021-10-25] MEDS: PANTOPRAZOLE 40 MG VIAL IV SCH ×2 (09:00→22:10)
[2021-10-25] MEDS: GABAPENTIN 100 MG CAPSULE PO SCH ×3 (09:00→22:11)
[2021-10-25] MEDS: CHOLECALCIFEROL 5,000 UNIT TABLET PO SCH ×2 (09:00→22:11)
[2021-10-25] MEDS: LOSARTAN 25 MG TABLET PO SCH (09:00)
[2021-10-25] MEDS: CALCIUM (CARBONATE) 500 MG TABLET PO SCH ×2 (09:00→22:11)
[2021-10-25] MEDS: ASPIRIN EC 325 MG TABLET PO SCH (09:00)
[2021-10-25] MEDS: FERROUS SULFATE 325 MG TABLET PO SCH (09:00)
[2021-10-25] MEDS: TOBRAMYCIN 0.3% OPH OINT 3.5 GM TUBE RIGHT EYE SCH ×3 (10:46→22:11)
[2021-10-25] MEDS: cefTRIAXone 1,000 MG in SODIUM CHLORIDE 0.9% 100 ML IV SCH (13:51)
[2021-10-25] MEDS: SODIUM CHLORIDE 0.45% 1,000 ML IV SCH ×2 (14:16→14:38)
[2021-10-25] MEDS: SERTRALINE 25 MG TABLET PO SCH (22:11)
[2021-10-26] MEDS: SODIUM CHLORIDE 0.45% 1,000 ML IV SCH (03:36)
[2021-10-26 07:46] LABS: Basophils % 0.2 % (0.0-0.8); Hematocrit 32.8 VOL% (35.7-47.0); Hemoglobin 10.8 GM/DL (12.0-16.0); Immature Granulocytes % 0.3 %; Immature Granulocytes Absolute 0.04 #; Lymphocytes % 8.8 % (21.3-54.2); Mean Corpuscular HGB Conc 32.9 GM/DL (32-36); Mean Corpuscular Volume 88.4 FL (87-102); Mean Platelet Volume 9.9 FL (9.6-12.0); Monocytes % 6.7 % (1.7-12.7); Platelet Count 258 T/CUMM (130-400); Red Blood Count 3.71 MC/CUMM (3.8-5.5); Red Cell Distribution Width 19.8 % (9.3-17.3); White Blood Count 11.7 T/CUMM (4-12)
[2021-10-26 08:03] LABS: Calcium 5.9 MG/DL (8.5-10.1); Potassium 3.1 MMOL/L (3.5-5.1)
[2021-10-26] MEDS ORDERED: POTASSIUM CHLORIDE 20 MEQ TABLET PO ONE (08:30)
[2021-10-26] MEDS: CALCIUM (CARBONATE) 500 MG TABLET PO SCH (09:00)
[2021-10-26] MEDS: CHOLECALCIFEROL 5,000 UNIT TABLET PO SCH (09:01)
[2021-10-26] MEDS: ASPIRIN EC 325 MG TABLET PO SCH (09:02)
[2021-10-26] MEDS: GABAPENTIN 100 MG CAPSULE PO SCH (09:02)
[2021-10-26] MEDS: LOSARTAN 25 MG TABLET PO SCH (09:02)
[2021-10-26] MEDS: FERROUS SULFATE 325 MG TABLET PO SCH (09:02)
[2021-10-26] MEDS: ACEBUTOLOL 200 MG CAPSULE PO SCH (09:05)
[2021-10-26] MEDS: PANTOPRAZOLE 40 MG VIAL IV SCH (09:05)
[2021-10-26] MEDS: TOBRAMYCIN 0.3% OPH OINT 3.5 GM TUBE RIGHT EYE SCH (09:06)
[2021-10-26 12:05] VITALS: BP 145/56
[2021-10-26] MEDS: cefTRIAXone 1,000 MG in SODIUM CHLORIDE 0.9% 100 ML IV SCH (12:09)
[2021-10-26] MEDS: INSULIN REGULAR 100 UNIT/ML SUBCUT SCH (12:09)
== END 2021-10-26 15:55 | disposition home health service (06) | DRG 824 ==
LOC: SUATTDRO → EDBD → EDUNIT# → N.ED 02:46 → N.EDINP 02:46 → SUATTDRO 10-23 09:46 → N.EDINP 10-23 16:11 → N.3E 10-23 17:02
PROVIDERS: ADMIT Internal Medicine; ATTEND Internal Medicine

== ENCOUNTER 2021-11-03 10:03 | Inpatient (IN) ==
[~2021-11-03 10:03] MED LIST: LACTATED RINGERS 1,000 ML IV SCH
[2021-11-03] MEDS ORDERED: FAMOTIDINE 20 MG TABLET PO ONE (10:24)
[2021-11-03] MEDS ORDERED: BUPIVACAINE MPF 0.25% 30 ML VIAL ONE (11:08)
[2021-11-03] MEDS ORDERED: ceFAZolin 1,000 MG VIAL ONE (11:22)
[2021-11-03] MEDS ORDERED: fentaNYL 100 MCG/2 ML VIAL ONE (11:25)
[2021-11-03] MEDS ORDERED: SEVOFLURANE 1 UNIT/15 MINUTE INH ONE ×2 (11:25→12:14)
[2021-11-03] MEDS ORDERED: LIDOCAINE 2% 5 ML VIAL ONE (11:25)
[2021-11-03] MEDS ORDERED: ONDANSETRON 4 MG/2 ML VIAL ONE (11:25)
[2021-11-03] MEDS ORDERED: DEXAMETHASONE 4 MG/1 ML VIAL ONE (11:25)
[2021-11-03] MEDS ORDERED: propofoL 200 MG/20 ML VIAL IV ONE (11:25)
[2021-11-03] MEDS ORDERED: ACETAMINOPHEN INJ 1,000 MG/100 ML VIAL IV ONE (11:30)
[2021-11-03] MEDS ORDERED: PHENYLEPHRINE 1 MG/10 ML SYRINGE IV ONE (12:05)
[2021-11-03] MEDS ORDERED: ONDANSETRON 4 MG/2 ML VIAL IV PRN (13:41)
[2021-11-03] MEDS ORDERED: DEXTROSE 10% 250 ML BAG IV PRN (13:41)
[2021-11-03] MEDS ORDERED: PROMETHAZINE 25 MG/1 ML VIAL IM PRN (13:41)
[2021-11-03] MEDS ORDERED: GLUCAGON 1 MG VIAL IM PRN (13:41)
[2021-11-03 14:25] LABS: Basophils % 0.1 % (0.0-0.8); Hematocrit 37.2 VOL% (35.7-47.0); Hemoglobin 12.3 GM/DL (12.0-16.0); Immature Granulocytes % 0.5 %; Immature Granulocytes Absolute 0.06 #; Lymphocytes # 0.5 10*3/uL (1.4-4.0); Lymphocytes % 4.1 % (21.3-54.2); Mean Corpuscular HGB Conc 33.1 GM/DL (32-36); Mean Corpuscular Volume 90.1 FL (87-102); Monocytes % 3.8 % (1.7-12.7); Neutrophils % 91.5 % (38.7-73.9); Platelet Count 248 T/CUMM (130-400); Red Blood Count 4.13 MC/CUMM (3.8-5.5); Red Cell Distribution Width 18.1 % (9.3-17.3); White Blood Count 12.8 T/CUMM (4-12)
[2021-11-03 14:46] LABS: Potassium 3.2 MMOL/L (3.5-5.1)
[2021-11-03] MEDS ORDERED: POTASSIUM CHLORIDE 20 MEQ TABLET PO ONE (15:15)
[2021-11-03] MEDS ORDERED: MAGNESIUM SULF RIDER 2 GM/50 ML PREMIX IV PRN (15:15)
[2021-11-03] MEDS ORDERED: MAGNESIUM SULF RIDER 4 GM/100 ML PREMIX IV PRN (15:15)
[2021-11-03] MEDS: GABAPENTIN 100 MG CAPSULE PO SCH ×2 (17:16→21:21)
[2021-11-03 17:17] LABS: Hypochromia 2+; Lymphocytes 4 % (20-55); Promyelocytes 1 %; Segmented Neutrophils 91 % (50-85); Total Cells Counted 100
[2021-11-03] MEDS: CALCIUM (CARBONATE) 500 MG TABLET PO SCH (17:17)
[2021-11-03] MEDS: INSULIN REGULAR 100 UNIT/ML SUBCUT SCH ×2 (17:17→21:20)
[2021-11-03 17:18] LABS: Platelet Estimate Normal; Schistocytes Few
[2021-11-03] MEDS: SERTRALINE 25 MG TABLET PO SCH (21:20)
[2021-11-03] MEDS: ROSUVASTATIN 20 MG TABLET PO SCH (21:20)
[2021-11-03] MEDS: HYDROXYCHLOROQUINE 200 MG TABLET PO SCH (21:21)
[2021-11-03] MEDS: CHOLECALCIFEROL 5,000 UNIT TABLET PO SCH (21:21)
[2021-11-03] MEDS: LACTATED RINGERS 1,000 ML IV SCH ×2 (22:28)
[2021-11-03] MEDS: HYDROmorphone 2 MG/1 ML VIAL IV PRN (23:32)
[2021-11-04] MEDS: ENOXAPARIN 40 MG/0.4 ML SYRINGE SUBCUT SCH (06:41)
[2021-11-04] MEDS: LACTATED RINGERS 1,000 ML IV SCH ×3 (06:41→23:22)
[2021-11-04] MEDS: PANTOPRAZOLE 40 MG TABLET PO SCH (06:41)
[2021-11-04 07:00] LABS: Basophils % 0.1 % (0.0-0.8); Hematocrit 33.2 VOL% (35.7-47.0); Hemoglobin 10.9 GM/DL (12.0-16.0); Immature Granulocytes % 0.7 %; Lymphocytes # 0.8 10*3/uL (1.4-4.0); Lymphocytes % 5.3 % (21.3-54.2); Mean Corpuscular HGB Conc 32.8 GM/DL (32-36); Mean Corpuscular Volume 90.7 FL (87-102); Mean Platelet Volume 11.8 FL (9.6-12.0); Monocytes % 7.1 % (1.7-12.7); Neutrophils % 86.8 % (38.7-73.9); Platelet Count 258 T/CUMM (130-400); Red Blood Count 3.66 MC/CUMM (3.8-5.5); Red Cell Distribution Width 18.2 % (9.3-17.3); White Blood Count 14.7 T/CUMM (4-12)
[2021-11-04 07:11] LABS: Calcium 9.2 MG/DL (8.5-10.1); Osmolality,Calculated 290.4 MOS/KG (273-304); Potassium 3.3 MMOL/L (3.5-5.1)
[2021-11-04] MEDS: CHOLECALCIFEROL 5,000 UNIT TABLET PO SCH ×2 (08:55→21:12)
[2021-11-04] MEDS: MULTIVITAMIN (CENTRUM) TABLET PO SCH (08:55)
[2021-11-04] MEDS: ASPIRIN EC 325 MG TABLET PO SCH (08:55)
[2021-11-04] MEDS: ACEBUTOLOL 200 MG CAPSULE PO SCH (08:55)
[2021-11-04] MEDS: HYDROXYCHLOROQUINE 200 MG TABLET PO SCH ×2 (08:55→21:12)
[2021-11-04] MEDS: CALCIUM (CARBONATE) 500 MG TABLET PO SCH ×2 (08:56→17:53)
[2021-11-04] MEDS: GABAPENTIN 100 MG CAPSULE PO SCH ×3 (08:56→21:12)
[2021-11-04] MEDS: FERROUS SULFATE 325 MG TABLET PO SCH (08:59)
[2021-11-04] MEDS: INSULIN REGULAR 100 UNIT/ML SUBCUT SCH ×4 (09:00→22:21)
[2021-11-04] MEDS: SERTRALINE 25 MG TABLET PO SCH (21:12)
[2021-11-04] MEDS: ROSUVASTATIN 20 MG TABLET PO SCH (21:12)
[2021-11-04] MEDS: HYDROmorphone 2 MG/1 ML VIAL IV PRN (21:15)
[2021-11-05] MEDS: ENOXAPARIN 40 MG/0.4 ML SYRINGE SUBCUT SCH (06:01)
[2021-11-05] MEDS: LACTATED RINGERS 1,000 ML IV SCH ×3 (06:01→21:27)
[2021-11-05] MEDS: PANTOPRAZOLE 40 MG TABLET PO SCH (06:02)
[2021-11-05 06:53] LABS: Basophils % 0.2 % (0.0-0.8); Hematocrit 30.9 VOL% (35.7-47.0); Immature Granulocytes % 0.6 %; Immature Granulocytes Absolute 0.07 #; Lymphocytes # 1.2 10*3/uL (1.4-4.0); Lymphocytes % 9.6 % (21.3-54.2); Mean Corpuscular HGB Conc 32.4 GM/DL (32-36); Mean Corpuscular Volume 93.1 FL (87-102); Mean Platelet Volume 12.1 FL (9.6-12.0); Monocytes % 8.2 % (1.7-12.7); Neutrophils % 81.4 % (38.7-73.9); Platelet Count 210 T/CUMM (130-400); Red Blood Count 3.32 MC/CUMM (3.8-5.5); Red Cell Distribution Width 18.1 % (9.3-17.3); White Blood Count 12.7 T/CUMM (4-12)
[2021-11-05 07:12] LABS: Calcium 9.4 MG/DL (8.5-10.1); Osmolality,Calculated 286.4 MOS/KG (273-304); Potassium 3.2 MMOL/L (3.5-5.1)
[2021-11-05] MEDS: ACEBUTOLOL 200 MG CAPSULE PO SCH (09:07)
[2021-11-05] MEDS: FERROUS SULFATE 325 MG TABLET PO SCH (09:07)
[2021-11-05] MEDS: CALCIUM (CARBONATE) 500 MG TABLET PO SCH ×2 (09:07→17:56)
[2021-11-05] MEDS: MULTIVITAMIN (CENTRUM) TABLET PO SCH (09:08)
[2021-11-05] MEDS: CHOLECALCIFEROL 5,000 UNIT TABLET PO SCH ×2 (09:08→20:51)
[2021-11-05] MEDS: GABAPENTIN 100 MG CAPSULE PO SCH ×3 (09:08→20:51)
[2021-11-05] MEDS: HYDROmorphone 2 MG/1 ML VIAL IV PRN ×2 (09:08→20:52)
[2021-11-05] MEDS: ASPIRIN EC 325 MG TABLET PO SCH (09:08)
[2021-11-05] MEDS ORDERED: POTASSIUM CHLORIDE 20 MEQ TABLET PO PRN (09:39)
[2021-11-05] MEDS: HYDROXYCHLOROQUINE 200 MG TABLET PO SCH ×2 (10:26→20:51)
[2021-11-05] MEDS: INSULIN REGULAR 100 UNIT/ML SUBCUT SCH ×4 (10:26→20:52)
[2021-11-05] MEDS: ROSUVASTATIN 20 MG TABLET PO SCH (20:51)
[2021-11-05] MEDS: SERTRALINE 25 MG TABLET PO SCH (20:51)
[2021-11-06 04:36] LABS: Basophils % 0.1 % (0.0-0.8); Hemoglobin 9.8 GM/DL (12.0-16.0); Immature Granulocytes % 0.6 %; Immature Granulocytes Absolute 0.08 #; Lymphocytes % 8.1 % (21.3-54.2); Mean Corpuscular HGB Conc 32.7 GM/DL (32-36); Mean Corpuscular Volume 91.5 FL (87-102); Mean Platelet Volume 10.9 FL (9.6-12.0); Neutrophils % 82.2 % (38.7-73.9); Platelet Count 196 T/CUMM (130-400); Red Blood Count 3.28 MC/CUMM (3.8-5.5); Red Cell Distribution Width 17.4 % (9.3-17.3); White Blood Count 12.4 T/CUMM (4-12)
[2021-11-06 04:51] LABS: Calcium 9.1 MG/DL (8.5-10.1); Osmolality,Calculated 287.4 MOS/KG (273-304); Potassium 3.2 MMOL/L (3.5-5.1)
[2021-11-06] MEDS: LACTATED RINGERS 1,000 ML IV SCH (05:34)
[2021-11-06] MEDS: PANTOPRAZOLE 40 MG TABLET PO SCH (05:34)
[2021-11-06] MEDS: ENOXAPARIN 40 MG/0.4 ML SYRINGE SUBCUT SCH (05:35)
[2021-11-06] MEDS: FERROUS SULFATE 325 MG TABLET PO SCH (08:56)
[2021-11-06] MEDS: MULTIVITAMIN (CENTRUM) TABLET PO SCH (08:56)
[2021-11-06] MEDS: CHOLECALCIFEROL 5,000 UNIT TABLET PO SCH (08:56)
[2021-11-06] MEDS: ACEBUTOLOL 200 MG CAPSULE PO SCH (08:56)
[2021-11-06] MEDS: GABAPENTIN 100 MG CAPSULE PO SCH (08:56)
[2021-11-06] MEDS: HYDROXYCHLOROQUINE 200 MG TABLET PO SCH (08:56)
[2021-11-06] MEDS: ASPIRIN EC 325 MG TABLET PO SCH (08:56)
[2021-11-06] MEDS: CALCIUM (CARBONATE) 500 MG TABLET PO SCH (08:56)
[2021-11-06] MEDS: INSULIN REGULAR 100 UNIT/ML SUBCUT SCH ×2 (08:57→12:06)
[2021-11-06] MEDS ORDERED: DEXAMETHASONE 4 MG TABLET PO SCH (09:00)
[2021-11-06 11:43] VITALS: BP 193/90
== END 2021-11-06 14:43 | disposition home health service (06) | DRG 240 ==
LOC: N.OR 10:03 → N.SDSINP 10:04 → N.3E 13:38
PROVIDERS: ADMIT Surgery; ATTEND Surgery

== ENCOUNTER 2021-12-19 06:31 | Observation (INO) ==
[2021-12-19] MEDS ORDERED: fentaNYL 100 MCG/2 ML VIAL ONE (10:49)
[2021-12-19] MEDS ORDERED: KETAMINE 500 MG/10 ML VIAL ONE (10:59)
[2021-12-19] MEDS ORDERED: propofoL 200 MG/20 ML VIAL IV ONE (11:01)
[2021-12-19] MEDS ORDERED: ETOMIDATE 40 MG/20 ML VIAL IV ONE (11:01)
[2021-12-19] MEDS ORDERED: LIDOCAINE 2% 5 ML VIAL ONE (11:01)
[2021-12-19] MEDS ORDERED: SEVOFLURANE 1 UNIT/15 MINUTE INH ONE (11:02)
[2021-12-19 12:52] LABS: Osmolality,Calculated 297.3 MOS/KG (273-304)
[2021-12-19 12:56] LABS: Potassium 6.1 MMOL/L (3.5-5.1)
[2021-12-19] MEDS ORDERED: SODIUM POLYSTYRENE SULFATE 15 GM/60 ML BOTTLE PO ONE ×2 (13:19→13:30)
[2021-12-19] MEDS ORDERED: GLUCAGON 1 MG VIAL IM PRN (14:38)
[2021-12-19] MEDS ORDERED: ACETAMINOPHEN 325 MG TABLET PO PRN (14:38)
[2021-12-19] MEDS ORDERED: ALBUTEROL 2.5 MG/3 ML NEB RESP TX PRN (14:38)
[2021-12-19] MEDS ORDERED: hydrALAZINE 20 MG/1 ML VIAL IV PRN (14:38)
[2021-12-19] MEDS ORDERED: DOCUSATE SODIUM 100 MG CAPSULE PO PRN (14:38)
[2021-12-19] MEDS ORDERED: ONDANSETRON 4 MG/2 ML VIAL IV PRN (14:38)
[2021-12-19] MEDS ORDERED: DEXTROSE 10% 250 ML BAG IV PRN (14:42)
[2021-12-19 15:23] LABS: Basophils % 0.1 % (0.0-0.8); Hematocrit 26.1 VOL% (35.7-47.0); Hemoglobin 8.6 GM/DL (12.0-16.0); Immature Granulocytes Absolute 0.19 #; Lymphocytes # 0.6 10*3/uL (1.4-4.0); Mean Platelet Volume 11.1 FL (9.6-12.0); Neutrophils % 90.9 % (38.7-73.9); Platelet Count 225 T/CUMM (130-400); Red Blood Count 2.72 MC/CUMM (3.8-5.5); Red Cell Distribution Width 17.2 % (9.3-17.3); White Blood Count 19.6 T/CUMM (4-12)
[2021-12-19] MEDS: SODIUM CHLORIDE 0.9% 1,000 ML IV SCH ×2 (15:28→23:51)
[2021-12-19] MEDS ORDERED: MAGNESIUM SULF RIDER 2 GM/50 ML PREMIX IV ONE (15:30)
[2021-12-19 16:06] LABS: Lymphocytes 1 % (20-55); Myelocytes 1 %; Nucleated Red Blood Cells 1 (0-5); Total Cells Counted 100
[2021-12-19 16:07] LABS: Anisocytosis 1+
[2021-12-19 16:08] LABS: Platelet Estimate Increased; Schistocytes Few
[2021-12-19] MEDS: cefTRIAXone 1,000 MG in SODIUM CHLORIDE 0.9% 100 ML IV SCH (16:31)
[2021-12-19] MEDS: INSULIN LISPRO 100 UNIT/ML SUBCUT SCH ×2 (22:00→22:06)
[2021-12-20 05:48] LABS: Basophils % 0.1 % (0.0-0.8); Hematocrit 23.3 VOL% (35.7-47.0); Hemoglobin 7.5 GM/DL (12.0-16.0); Immature Granulocytes % 0.7 %; Lymphocytes # 0.7 10*3/uL (1.4-4.0); Lymphocytes % 4.9 % (21.3-54.2); Mean Corpuscular HGB Conc 32.2 GM/DL (32-36); Mean Corpuscular Volume 97.5 FL (87-102); Mean Platelet Volume 10.7 FL (9.6-12.0); Monocytes % 7.1 % (1.7-12.7); Neutrophils % 87.2 % (38.7-73.9); Platelet Count 183 T/CUMM (130-400); Red Blood Count 2.39 MC/CUMM (3.8-5.5); Red Cell Distribution Width 17.2 % (9.3-17.3); White Blood Count 14.5 T/CUMM (4-12)
[2021-12-20 06:06] LABS: Alanine Aminotransferase 128 U/L (13-56); Albumin 1.7 G/DL (3.4-5.0); Alkaline Phosphatase 109 U/L (45-117); Aspartate Amino Transferase 126 U/L (0-37); Bilirubin,Total < 0.39 MG/DL (0.20-1.00); Blood Urea Nitrogen 29 MG/DL (7-18); Calcium 8.6 MG/DL (8.5-10.1); Carbon Dioxide 23 MMOL/L (21-32); Chloride 121 MMOL/L (98-107); Estimated Glom Filtration Rate 27 ML/MIN; Glucose 84 MG/DL (74-106); Osmolality,Calculated 303.9 MOS/KG (273-304); Potassium 3.3 MMOL/L (3.5-5.1); Sodium 151 MMOL/L (136-145); Total Protein 5.2 G/DL (6.4-8.2)
[2021-12-20 06:12] LABS: Hypochromia 1+; Lymphocytes 2 % (20-55); Microcytosis 1+; Platelet Estimate Adequate; Total Cells Counted 100
[2021-12-20 06:16] LABS: Risk Ratio 1.78; Thyroid Stimulating Hormone 2.34 uIU/ml (0.358-3.74); VLDL Cholesterol 12.6 MG/DL
[2021-12-20] MEDS ORDERED: CLINDAMYCIN INJ 900 MG/50 ML PREMIX IV ONE (08:00)
[2021-12-20] MEDS: SODIUM CHLORIDE 0.45% 1,000 ML IV SCH ×2 (08:15→19:06)
[2021-12-20] MEDS: INSULIN LISPRO 100 UNIT/ML SUBCUT SCH ×4 (08:49→20:35)
[2021-12-20] MEDS: PANTOPRAZOLE 40 MG TABLET PO SCH (08:50)
[2021-12-20] MEDS ORDERED: LIDOCAINE 1%/EPI INJ 20 ML VIAL ONE (08:52)
[2021-12-20] MEDS ORDERED: BUPIVACAINE MPF 0.25% 30 ML VIAL ONE (08:52)
[2021-12-20] MEDS ORDERED: LIDOCAINE 1% 50 ML VIAL ONE (08:52)
[2021-12-20] MEDS ORDERED: propofoL 200 MG/20 ML VIAL IV ONE (09:07)
[2021-12-20] MEDS ORDERED: LIDOCAINE 2% 5 ML VIAL ONE (09:07)
[2021-12-20] MEDS ORDERED: fentaNYL 100 MCG/2 ML VIAL ONE (09:07)
[2021-12-20] MEDS ORDERED: MIDAZOLAM 2 MG/2 ML VIAL ONE (09:07)
[2021-12-20] MEDS ORDERED: FAMOTIDINE 20 MG/2 ML VIAL IV ONE (09:27)
[2021-12-20 09:41] LABS: Hepatitis B Core IgM Quant 0.35 Index; Hepatitis B Surface Ag Quant < 0.10 Index; Hepatitis B Surface Ag Result Non-Reactive (NonReactive); Hepatitis C Virus Ab Quant 0.15 Index; Hepatitis C Virus Ab Result Non-Reactive (NonReactive)
[2021-12-20] MEDS ORDERED: KETAMINE 500 MG/10 ML VIAL ONE (10:44)
[2021-12-20] MEDS ORDERED: PHENYLEPHRINE 1 MG/10 ML SYRINGE IV ONE (10:47)
[2021-12-20] MEDS ORDERED: ETOMIDATE 40 MG/20 ML VIAL IV ONE (10:47)
[2021-12-20] MEDS ORDERED: MORPHINE 2 MG/1 ML SYRINGE IV PRN ×2 (12:11)
[2021-12-20] MEDS: cefTRIAXone 1,000 MG in SODIUM CHLORIDE 0.9% 100 ML IV SCH (14:45)
[2021-12-20] MEDS: amLODIPine 10 MG TABLET PO SCH (14:45)
[2021-12-20] MEDS: GABAPENTIN 100 MG CAPSULE PO SCH ×2 (14:45→20:34)
[2021-12-20 15:06] LABS: % Iron Saturation 64.3 % (18-50); Ferritin 2659.7 ng/mL (8-252)
[2021-12-20] MEDS: CLINDAMYCIN INJ 900 MG/50 ML PREMIX IV SCH (19:06)
[2021-12-20] MEDS: HYDROXYCHLOROQUINE 200 MG TABLET PO SCH (20:34)
[2021-12-20] MEDS: CALCIUM (CARBONATE) 500 MG TABLET PO SCH (20:35)
[2021-12-20] MEDS: SERTRALINE 25 MG TABLET PO SCH (20:35)
[2021-12-21] MEDS: CLINDAMYCIN INJ 900 MG/50 ML PREMIX IV SCH (02:13)
[2021-12-21 04:55] LABS: Hematocrit 20.6 VOL% (35.7-47.0); Hemoglobin 6.6 GM/DL (12.0-16.0); Immature Granulocytes % 0.7 %; Immature Granulocytes Absolute 0.07 #; Lymphocytes # 0.8 10*3/uL (1.4-4.0); Lymphocytes % 7.3 % (21.3-54.2); Mean Corpuscular Volume 97.6 FL (87-102); Mean Platelet Volume 10.9 FL (9.6-12.0); Monocytes % 9.9 % (1.7-12.7); Neutrophils % 82.1 % (38.7-73.9); Platelet Count 135 T/CUMM (130-400); Red Blood Count 2.11 MC/CUMM (3.8-5.5); Red Cell Distribution Width 16.7 % (9.3-17.3); White Blood Count 10.5 T/CUMM (4-12)
[2021-12-21 05:18] LABS: Lymphocytes 5 % (20-55); Microcytosis 1+; Total Cells Counted 100
[2021-12-21 05:19] LABS: Ovalocytes Slight
[2021-12-21 05:20] LABS: Alanine Aminotransferase 92 U/L (13-56); Albumin 1.6 G/DL (3.4-5.0); Alkaline Phosphatase 91 U/L (45-117); Aspartate Amino Transferase 58 U/L (0-37); Bilirubin,Total < 0.39 MG/DL (0.20-1.00); Blood Urea Nitrogen 25 MG/DL (7-18); Calcium 7.7 MG/DL (8.5-10.1); Carbon Dioxide 26 MMOL/L (21-32); Chloride 110 MMOL/L (98-107); Estimated Glom Filtration Rate 34 ML/MIN; Glucose 316 MG/DL (74-106); Osmolality,Calculated 294.4 MOS/KG (273-304); Sodium 140 MMOL/L (136-145); Total Protein 4.4 G/DL (6.4-8.2)
[2021-12-21 05:25] LABS: Potassium 2.4 MMOL/L (3.5-5.1)
[2021-12-21] MEDS ORDERED: POTASSIUM CHLORIDE 20 MEQ TABLET PO ONE (05:34)
[2021-12-21] MEDS ORDERED: MAGNESIUM SULF RIDER 2 GM/50 ML PREMIX IV ONE (05:36)
[2021-12-21] MEDS: SODIUM CHLORIDE 0.45% 1,000 ML IV SCH ×2 (06:08→11:34)
[2021-12-21] MEDS ORDERED: SODIUM CHLORIDE 0.9% 1,000 ML IV PRN (07:05)
[2021-12-21] MEDS ORDERED: INSULIN GLARGINE 100 UNIT/ML SUBCUT SCH (09:00)
[2021-12-21] MEDS ORDERED: FERROUS SULFATE 325 MG TABLET PO SCH ×2 (09:00)
[2021-12-21] MEDS: PANTOPRAZOLE 40 MG TABLET PO SCH (09:27)
[2021-12-21] MEDS: CHOLECALCIFEROL 5,000 UNIT TABLET PO SCH (09:27)
[2021-12-21] MEDS: amLODIPine 10 MG TABLET PO SCH (09:28)
[2021-12-21] MEDS: HYDROXYCHLOROQUINE 200 MG TABLET PO SCH ×2 (09:28→21:12)
[2021-12-21] MEDS: GABAPENTIN 100 MG CAPSULE PO SCH ×3 (09:28→21:11)
[2021-12-21] MEDS: FERROUS SULFATE 325 MG TABLET PO SCH (09:28)
[2021-12-21] MEDS: CALCIUM (CARBONATE) 500 MG TABLET PO SCH ×2 (09:28→21:12)
[2021-12-21] MEDS: INSULIN LISPRO 100 UNIT/ML SUBCUT SCH ×4 (09:29→21:10)
[2021-12-21] MEDS: POTASSIUM CHLORIDE RIDER 10 MEQ/100 ML PREMIX IV SCH ×2 (11:07→14:38)
[2021-12-21 14:09] LABS: Calcium 7.3 MG/DL (8.5-10.1); Potassium 3.9 MMOL/L (3.5-5.1)
[2021-12-21] MEDS: cefTRIAXone 1,000 MG in SODIUM CHLORIDE 0.9% 100 ML IV SCH (16:38)
[2021-12-21 17:16] LABS: Amorphous Crystals,Urine Occasional /HPF (Few); Hyaline Casts,Urine 1 /LPF (0-3); Mucus,Urine Occasional /LPF (Occasional); RBC,Urine 2 /HPF (0-4)
[2021-12-21 17:18] LABS: Glucose,Urine (UA) 250 mg/dL (Negative); Ketones,Urine Negative (Negative); Nitrite,Urine Negative (Negative); Protein,Urine 1+ mg/dL (Negative); Urine Appearance Clear (Clear); Urine Color Yellow (Yellow); Urine Specific Gravity 1.015 (1.001-1.035)
[2021-12-21 17:19] LABS: Bilirubin,Urine Negative (Negative); Blood, Urine Large mg/dL (Negative); Urine Urobilinogen 0.2 eU/dL (<2.0)
[2021-12-21] MEDS: NYSTATIN 500,000 UNIT/5 ML UDCUP SWISH/SWAL SCH ×2 (18:11→21:12)
[2021-12-21] MEDS: SERTRALINE 25 MG TABLET PO SCH (21:12)
[2021-12-21 22:22] LABS: Hematocrit 35.6 VOL% (35.7-47.0); Hemoglobin 11.5 GM/DL (12.0-16.0)
[2021-12-22] MEDS: SODIUM CHLORIDE 0.45% 1,000 ML IV SCH ×2 (01:45→11:08)
[2021-12-22 06:25] LABS: Basophils % 0.1 % (0.0-0.8); Hematocrit 34.8 VOL% (35.7-47.0); Hemoglobin 11.6 GM/DL (12.0-16.0); Immature Granulocytes % 0.7 %; Lymphocytes # 0.6 10*3/uL (1.4-4.0); Lymphocytes % 4.4 % (21.3-54.2); Mean Corpuscular HGB Conc 33.3 GM/DL (32-36); Mean Corpuscular Volume 90.9 FL (87-102); Mean Platelet Volume 11.1 FL (9.6-12.0); Monocytes # 1.1 10*3/uL (0.11-0.8); Monocytes % 7.7 % (1.7-12.7); Neutrophils % 87.1 % (38.7-73.9); Platelet Count 123 T/CUMM (130-400); Red Blood Count 3.83 MC/CUMM (3.8-5.5); Red Cell Distribution Width 16.9 % (9.3-17.3)
[2021-12-22 06:41] LABS: Alanine Aminotransferase 82 U/L (13-56); Albumin 1.8 G/DL (3.4-5.0); Alkaline Phosphatase 103 U/L (45-117); Aspartate Amino Transferase 57 U/L (0-37); Bilirubin,Total < 0.39 MG/DL (0.20-1.00); Blood Urea Nitrogen 18 MG/DL (7-18); Calcium 7.5 MG/DL (8.5-10.1); Carbon Dioxide 21 MMOL/L (21-32); Chloride 113 MMOL/L (98-107); Estimated Glom Filtration Rate 55 ML/MIN; Glucose 62 MG/DL (74-106); Osmolality,Calculated 282.1 MOS/KG (273-304); Potassium 3.7 MMOL/L (3.5-5.1); Sodium 142 MMOL/L (136-145); Total Protein 5.2 G/DL (6.4-8.2)
[2021-12-22 06:46] LABS: Band Neutrophils 1 % (0-10); Lymphocytes 5 % (20-55); Platelet Estimate Normal; Total Cells Counted 100
[2021-12-22] MEDS: INSULIN LISPRO 100 UNIT/ML SUBCUT SCH ×2 (08:29→13:57)
[2021-12-22] MEDS ORDERED: amLODIPine 5 MG TABLET PO SCH (09:00)
[2021-12-22] MEDS: CALCIUM (CARBONATE) 500 MG TABLET PO SCH (09:09)
[2021-12-22] MEDS: HYDROXYCHLOROQUINE 200 MG TABLET PO SCH (09:09)
[2021-12-22] MEDS: PANTOPRAZOLE 40 MG TABLET PO SCH (09:09)
[2021-12-22] MEDS: CHOLECALCIFEROL 5,000 UNIT TABLET PO SCH (09:09)
[2021-12-22] MEDS: GABAPENTIN 100 MG CAPSULE PO SCH (09:10)
[2021-12-22] MEDS: FERROUS SULFATE 325 MG TABLET PO SCH (09:10)
[2021-12-22] MEDS: NYSTATIN 500,000 UNIT/5 ML UDCUP SWISH/SWAL SCH ×2 (09:10→13:57)
[2021-12-22 12:18] VITALS: BP 107/58
== END 2021-12-22 13:30 | disposition home health service (06) ==
LOC: N.OR 06:31 → N.SDSINP 06:33 → SUATTDRO 13:20 → INTOOBSV 13:20 → N.SDSINP 13:20 → N.TELEN 14:57
PROVIDERS: ADMIT Internal Medicine; ATTEND Emergency Medicine

== ENCOUNTER 2022-01-02 11:59 | Inpatient (IN) ==
[2022-01-02 13:18] LABS: Basophils % 0.1 % (0.0-0.8); Hematocrit 33.5 VOL% (35.7-47.0); Hemoglobin 11.1 GM/DL (12.0-16.0); Immature Granulocytes % 0.9 %; Lymphocytes # 0.3 10*3/uL (1.4-4.0); Lymphocytes % 2.8 % (21.3-54.2); Mean Corpuscular HGB Conc 33.1 GM/DL (32-36); Mean Corpuscular Volume 90.5 FL (87-102); Mean Platelet Volume 11.2 FL (9.6-12.0); Monocytes # 0.3 10*3/uL (0.11-0.8); Monocytes % 2.9 % (1.7-12.7); Neutrophils % 93.3 % (38.7-73.9); Platelet Count 319 T/CUMM (130-400); Red Cell Distribution Width 17.9 % (9.3-17.3); White Blood Count 11.6 T/CUMM (4-12)
[2022-01-02 13:29] LABS: Glucose,Urine (UA) 500 mg/dL (Negative); Ketones,Urine Negative (Negative); Protein,Urine 100 mg/dL (Negative); RBC,Urine 14 /HPF (0-4); Urine Appearance Clear (Clear); Urine Color Yellow (Yellow); Urine Specific Gravity >= 1.030 (1.001-1.035)
[2022-01-02 13:30] LABS: Bilirubin,Urine Negative (Negative); Blood, Urine Moderate mg/dL (Negative); Nitrite,Urine Negative (Negative); Urine Urobilinogen 0.2 eU/dL (<2.0)
[2022-01-02 13:38] LABS: Calcium 7.9 MG/DL (8.5-10.1); Osmolality,Calculated 311.3 MOS/KG (273-304); Potassium 3.4 MMOL/L (3.5-5.1)
[2022-01-02] MEDS ORDERED: AZITHROMYCIN INJ 500 MG in SODIUM CHLORIDE 0.9% 250 ML IV STA (13:57)
[2022-01-02] MEDS ORDERED: cefTRIAXone 1,000 MG in SODIUM CHLORIDE 0.9% 100 ML IV STA (13:57)
[2022-01-02] MEDS ORDERED: ACETAMINOPHEN 325 MG TABLET PO PRN (15:10)
[2022-01-02] MEDS ORDERED: GLUCAGON 1 MG VIAL IM PRN ×2 (15:10)
[2022-01-02] MEDS ORDERED: ONDANSETRON 4 MG/2 ML VIAL IV PRN (15:10)
[2022-01-02] MEDS ORDERED: DEXTROSE 50% 25 GM/50 ML VIAL IV PRN (15:10)
[2022-01-02] MEDS ORDERED: NITROGLYCERIN SL 0.4 MG TABLET SL PRN (15:11)
[2022-01-02] MEDS ORDERED: SODIUM CHLORIDE 0.9% 1,000 ML IV SCH (15:30)
[2022-01-02] MEDS ORDERED: DEXTROSE 10% 250 ML BAG IV PRN (16:24)
[2022-01-02] MEDS ORDERED: VANCOMYCIN INJ 1,000 MG in SODIUM CHLORIDE 0.9% 250 ML IV SCH (16:30)
[2022-01-02] MEDS ORDERED: MAGNESIUM SULF RIDER 4 GM/100 ML PREMIX IV PRN (17:03)
[2022-01-02] MEDS ORDERED: MAGNESIUM SULF RIDER 2 GM/50 ML PREMIX IV PRN (17:03)
[2022-01-02 17:08] LABS: Band Neutrophils 1 % (0-10); Lymphocytes 4 % (20-55); Total Cells Counted 100
[2022-01-02 17:09] LABS: Platelet Estimate Normal
[2022-01-02] MEDS: INSULIN LISPRO 100 UNIT/ML SUBCUT SCH ×2 (17:24→21:00)
[2022-01-02] MEDS: SODIUM CHLORIDE 0.45% 1,000 ML IV SCH (17:46)
[2022-01-02] MEDS: PIPERACILLIN/TAZOBACTAM 3,375 MG in SODIUM CHLORIDE 0.9% 100 ML IV SCH ×2 (17:47→23:30)
[2022-01-02] MEDS: NYSTATIN 500,000 UNIT/5 ML UDCUP SWISH/SWAL SCH ×2 (17:48→22:01)
[2022-01-02] MEDS: SERTRALINE 25 MG TABLET PO SCH (21:00)
[2022-01-02] MEDS: ROSUVASTATIN 20 MG TABLET PO SCH (21:00)
[2022-01-02] MEDS: VANCOMYCIN INJ 750 MG in SODIUM CHLORIDE 0.9% 250 ML IV SCH (21:00)
[2022-01-02] MEDS: CALCIUM (CARBONATE) 500 MG TABLET PO SCH (21:00)
[2022-01-03] MEDS: PANTOPRAZOLE 40 MG TABLET PO SCH (05:58)
[2022-01-03 06:02] LABS: Basophils % 0.1 % (0.0-0.8); Hematocrit 29.6 VOL% (35.7-47.0); Hemoglobin 9.9 GM/DL (12.0-16.0); Immature Granulocytes % 0.7 %; Lymphocytes # 0.4 10*3/uL (1.4-4.0); Lymphocytes % 3.1 % (21.3-54.2); Mean Corpuscular HGB Conc 33.4 GM/DL (32-36); Mean Corpuscular Volume 90.2 FL (87-102); Mean Platelet Volume 11.1 FL (9.6-12.0); Monocytes # 0.9 10*3/uL (0.11-0.8); Monocytes % 6.7 % (1.7-12.7); Neutrophils % 89.4 % (38.7-73.9); Platelet Count 310 T/CUMM (130-400); Red Blood Count 3.28 MC/CUMM (3.8-5.5); Red Cell Distribution Width 17.9 % (9.3-17.3); White Blood Count 13.5 T/CUMM (4-12)
[2022-01-03 06:27] LABS: Lymphocytes 3 % (20-55); Platelet Estimate Normal; Total Cells Counted 100
[2022-01-03 06:36] LABS: Alanine Aminotransferase 42 U/L (13-56); Albumin 1.6 G/DL (3.4-5.0); Alkaline Phosphatase 157 U/L (45-117); Aspartate Amino Transferase 17 U/L (0-37); Bilirubin,Total < 0.39 MG/DL (0.20-1.00); Blood Urea Nitrogen 28 MG/DL (7-18); Calcium 7.9 MG/DL (8.5-10.1); Carbon Dioxide 25 MMOL/L (21-32); Chloride 113 MMOL/L (98-107); Estimated Glom Filtration Rate 65 ML/MIN; Glucose 190 MG/DL (74-106); Osmolality,Calculated 302.4 MOS/KG (273-304); Sodium 147 MMOL/L (136-145); Total Protein 5.3 G/DL (6.4-8.2)
[2022-01-03 06:41] LABS: Potassium 2.5 MMOL/L (3.5-5.1)
[2022-01-03] MEDS ORDERED: MAGNESIUM SULF RIDER 2 GM/50 ML PREMIX IV ONE (07:30)
[2022-01-03] MEDS ORDERED: POTASSIUM CHLORIDE 20 MEQ TABLET PO ONE (07:30)
[2022-01-03] MEDS: POTASSIUM CHLORIDE RIDER 10 MEQ/100 ML PREMIX IV PRN ×2 (07:55→09:32)
[2022-01-03] MEDS: INSULIN LISPRO 100 UNIT/ML SUBCUT SCH ×4 (08:47→21:00)
[2022-01-03] MEDS ORDERED: DEXMEDETOMIDINE 200 MCG/2 ML VIAL ONE (10:31)
[2022-01-03] MEDS ORDERED: MIDAZOLAM 2 MG/2 ML VIAL ONE (10:32)
[2022-01-03] MEDS ORDERED: LIDOCAINE 1% 50 ML VIAL ONE (10:43)
[2022-01-03] MEDS ORDERED: BUPIVACAINE MPF 0.25% 30 ML VIAL ONE (10:43)
[2022-01-03] MEDS ORDERED: fentaNYL 100 MCG/2 ML VIAL ONE (11:50)
[2022-01-03] MEDS ORDERED: ETOMIDATE 40 MG/20 ML VIAL IV ONE (12:13)
[2022-01-03] MEDS: PIPERACILLIN/TAZOBACTAM 3,375 MG in SODIUM CHLORIDE 0.9% 100 ML IV SCH ×2 (13:51→17:21)
[2022-01-03] MEDS: CHOLECALCIFEROL 5,000 UNIT TABLET PO SCH (13:52)
[2022-01-03] MEDS: amLODIPine 5 MG TABLET PO SCH (13:52)
[2022-01-03] MEDS: FERROUS SULFATE 325 MG TABLET PO SCH (13:52)
[2022-01-03] MEDS: NYSTATIN 500,000 UNIT/5 ML UDCUP SWISH/SWAL SCH ×3 (13:52→21:00)
[2022-01-03] MEDS: ACEBUTOLOL 200 MG CAPSULE PO SCH (13:52)
[2022-01-03] MEDS: CALCIUM (CARBONATE) 500 MG TABLET PO SCH ×2 (13:52→21:00)
[2022-01-03] MEDS: ASPIRIN EC 325 MG TABLET PO SCH (13:52)
[2022-01-03] MEDS: SODIUM CHLORIDE 0.45% 1,000 ML IV SCH (13:53)
[2022-01-03] MEDS: ZINC OXIDE PASTE 113 GM TUBE TOP SCH ×2 (13:53→21:01)
[2022-01-03 14:02] LABS: % Iron Saturation 67.1 % (18-50)
[2022-01-03 14:16] LABS: Folate 5.63 NG/ML (5.38-24.0)
[2022-01-03] MEDS ORDERED: MORPHINE 2 MG/1 ML SYRINGE IV PRN (17:18)
[2022-01-03] MEDS: VANCOMYCIN INJ 750 MG in SODIUM CHLORIDE 0.9% 250 ML IV SCH (17:20)
[2022-01-03] MEDS: MORPHINE 2 MG/1 ML SYRINGE IV PRN (17:32)
[2022-01-03] MEDS: POTASSIUM CHLORIDE 20 MEQ TABLET PO PRN (21:00)
[2022-01-03] MEDS: ROSUVASTATIN 20 MG TABLET PO SCH (21:00)
[2022-01-03] MEDS: SERTRALINE 25 MG TABLET PO SCH (21:00)
[2022-01-04] MEDS: PIPERACILLIN/TAZOBACTAM 3,375 MG in SODIUM CHLORIDE 0.9% 100 ML IV SCH ×3 (01:37→16:48)
[2022-01-04] MEDS: PANTOPRAZOLE 40 MG TABLET PO SCH (05:22)
[2022-01-04 06:40] LABS: Basophils % 0.1 % (0.0-0.8); Hematocrit 31.2 VOL% (35.7-47.0); Hemoglobin 10.1 GM/DL (12.0-16.0); Immature Granulocytes % 0.9 %; Lymphocytes # 0.6 10*3/uL (1.4-4.0); Lymphocytes % 4.9 % (21.3-54.2); Mean Corpuscular HGB Conc 32.4 GM/DL (32-36); Mean Platelet Volume 10.9 FL (9.6-12.0); Monocytes # 0.8 10*3/uL (0.11-0.8); Monocytes % 6.6 % (1.7-12.7); Neutrophils % 87.5 % (38.7-73.9); Platelet Count 288 T/CUMM (130-400); Red Blood Count 3.39 MC/CUMM (3.8-5.5); Red Cell Distribution Width 17.9 % (9.3-17.3); White Blood Count 11.8 T/CUMM (4-12)
[2022-01-04 07:00] LABS: Risk Ratio 2.13; VLDL Cholesterol 16.2 MG/DL
[2022-01-04 07:15] LABS: Burr Cells 1+; Ovalocytes Few
[2022-01-04 07:16] LABS: Calcium 7.7 MG/DL (8.5-10.1); Osmolality,Calculated 292.8 MOS/KG (273-304); Platelet Estimate Increased; Potassium 3.8 MMOL/L (3.5-5.1)
[2022-01-04 07:17] LABS: Anisocytosis 1+; Microcytosis Slight
[2022-01-04] MEDS: INSULIN LISPRO 100 UNIT/ML SUBCUT SCH ×4 (07:46→22:16)
[2022-01-04] MEDS: ASPIRIN EC 325 MG TABLET PO SCH (11:04)
[2022-01-04] MEDS: ZINC OXIDE PASTE 113 GM TUBE TOP SCH ×2 (11:04→21:23)
[2022-01-04] MEDS: FERROUS SULFATE 325 MG TABLET PO SCH (11:04)
[2022-01-04] MEDS: amLODIPine 5 MG TABLET PO SCH (11:05)
[2022-01-04] MEDS: NYSTATIN 500,000 UNIT/5 ML UDCUP SWISH/SWAL SCH ×4 (11:05→21:23)
[2022-01-04] MEDS: CALCIUM (CARBONATE) 500 MG TABLET PO SCH ×2 (11:05→21:22)
[2022-01-04] MEDS: SODIUM HYPOCHLORITE 0.25% IRRIG 473 ML BOTTLE TOP SCH (11:05)
[2022-01-04] MEDS: ACEBUTOLOL 200 MG CAPSULE PO SCH (11:05)
[2022-01-04] MEDS: CHOLECALCIFEROL 5,000 UNIT TABLET PO SCH (11:05)
[2022-01-04] MEDS: VANCOMYCIN INJ 750 MG in SODIUM CHLORIDE 0.9% 250 ML IV SCH (11:07)
[2022-01-04] MEDS: MORPHINE 2 MG/1 ML SYRINGE IV PRN (14:47)
[2022-01-04] MEDS: SODIUM CHLORIDE 0.45% 1,000 ML IV SCH (18:07)
[2022-01-04] MEDS: ROSUVASTATIN 20 MG TABLET PO SCH (21:22)
[2022-01-04] MEDS: MIRTAZAPINE 15 MG TABLET PO SCH (21:23)
[2022-01-05] MEDS: PIPERACILLIN/TAZOBACTAM 3,375 MG in SODIUM CHLORIDE 0.9% 100 ML IV SCH ×4 (00:06→23:30)
[2022-01-05] MEDS: VANCOMYCIN INJ 750 MG in SODIUM CHLORIDE 0.9% 250 ML IV SCH ×2 (02:46→21:38)
[2022-01-05] MEDS: PANTOPRAZOLE 40 MG TABLET PO SCH (05:49)
[2022-01-05 06:22] LABS: Calcium 7.6 MG/DL (8.5-10.1); Osmolality,Calculated 282.1 MOS/KG (273-304); Potassium 3.8 MMOL/L (3.5-5.1)
[2022-01-05] MEDS: INSULIN LISPRO 100 UNIT/ML SUBCUT SCH ×4 (07:06→21:57)
[2022-01-05 08:27] LABS: Basophils % 0.1 % (0.0-0.8); Hematocrit 37.8 VOL% (35.7-47.0); Hemoglobin 12.4 GM/DL (12.0-16.0); Immature Granulocytes % 1.2 %; Immature Granulocytes Absolute 0.16 #; Lymphocytes # 0.8 10*3/uL (1.4-4.0); Mean Corpuscular HGB Conc 32.8 GM/DL (32-36); Mean Corpuscular Volume 91.7 FL (87-102); Mean Platelet Volume 11.3 FL (9.6-12.0); Monocytes # 0.7 10*3/uL (0.11-0.8); Monocytes % 5.3 % (1.7-12.7); Neutrophils % 87.4 % (38.7-73.9); Platelet Count 319 T/CUMM (130-400); Red Blood Count 4.12 MC/CUMM (3.8-5.5); White Blood Count 13.7 T/CUMM (4-12)
[2022-01-05] MEDS: amLODIPine 5 MG TABLET PO SCH (09:48)
[2022-01-05] MEDS: CALCIUM (CARBONATE) 500 MG TABLET PO SCH ×2 (09:48→21:39)
[2022-01-05] MEDS: FERROUS SULFATE 325 MG TABLET PO SCH (09:48)
[2022-01-05] MEDS: CHOLECALCIFEROL 5,000 UNIT TABLET PO SCH (09:48)
[2022-01-05] MEDS: ASPIRIN EC 325 MG TABLET PO SCH (09:48)
[2022-01-05] MEDS: NYSTATIN 500,000 UNIT/5 ML UDCUP SWISH/SWAL SCH ×4 (09:49→21:39)
[2022-01-05] MEDS: ACEBUTOLOL 200 MG CAPSULE PO SCH (09:50)
[2022-01-05] MEDS: SODIUM HYPOCHLORITE 0.25% IRRIG 473 ML BOTTLE TOP SCH (10:35)
[2022-01-05] MEDS: ZINC OXIDE PASTE 113 GM TUBE TOP SCH ×2 (10:35→21:39)
[2022-01-05] MEDS: MORPHINE 2 MG/1 ML SYRINGE IV PRN (16:08)
[2022-01-05] MEDS: SODIUM CHLORIDE 0.45% 1,000 ML IV SCH (16:11)
[2022-01-05] MEDS: ROSUVASTATIN 20 MG TABLET PO SCH (21:39)
[2022-01-05] MEDS: MIRTAZAPINE 15 MG TABLET PO SCH (21:40)
[2022-01-06] MEDS: MORPHINE 2 MG/1 ML SYRINGE IV PRN ×2 (00:38→09:53)
[2022-01-06] MEDS: PANTOPRAZOLE 40 MG TABLET PO SCH (05:30)
[2022-01-06] MEDS: PIPERACILLIN/TAZOBACTAM 3,375 MG in SODIUM CHLORIDE 0.9% 100 ML IV SCH ×2 (09:25→17:48)
[2022-01-06] MEDS: amLODIPine 5 MG TABLET PO SCH (09:25)
[2022-01-06] MEDS: NYSTATIN 500,000 UNIT/5 ML UDCUP SWISH/SWAL SCH ×5 (09:26→21:43)
[2022-01-06] MEDS: ASPIRIN EC 325 MG TABLET PO SCH ×2 (09:26→11:27)
[2022-01-06] MEDS: FERROUS SULFATE 325 MG TABLET PO SCH ×2 (09:26→11:27)
[2022-01-06] MEDS: CALCIUM (CARBONATE) 500 MG TABLET PO SCH ×3 (09:26→21:43)
[2022-01-06] MEDS: CHOLECALCIFEROL 5,000 UNIT TABLET PO SCH (09:26)
[2022-01-06] MEDS: ZINC OXIDE PASTE 113 GM TUBE TOP SCH ×2 (09:26→21:43)
[2022-01-06] MEDS: ACEBUTOLOL 200 MG CAPSULE PO SCH (09:26)
[2022-01-06] MEDS: SODIUM HYPOCHLORITE 0.25% IRRIG 473 ML BOTTLE TOP SCH (09:27)
[2022-01-06] MEDS: INSULIN LISPRO 100 UNIT/ML SUBCUT SCH ×4 (10:42→21:43)
[2022-01-06 10:57] LABS: Basophils % 0.1 % (0.0-0.8); Hematocrit 33.1 VOL% (35.7-47.0); Hemoglobin 10.7 GM/DL (12.0-16.0); Immature Granulocytes % 1.1 %; Immature Granulocytes Absolute 0.15 #; Lymphocytes # 0.6 10*3/uL (1.4-4.0); Lymphocytes % 4.7 % (21.3-54.2); Mean Corpuscular HGB Conc 32.3 GM/DL (32-36); Mean Corpuscular Volume 92.5 FL (87-102); Mean Platelet Volume 10.8 FL (9.6-12.0); Monocytes # 0.7 10*3/uL (0.11-0.8); Monocytes % 5.3 % (1.7-12.7); Neutrophils % 88.8 % (38.7-73.9); Platelet Count 275 T/CUMM (130-400); Red Blood Count 3.58 MC/CUMM (3.8-5.5); Red Cell Distribution Width 17.5 % (9.3-17.3); White Blood Count 13.8 T/CUMM (4-12)
[2022-01-06 11:18] LABS: Lymphocytes 4 % (20-55); Platelet Estimate Adequate; Total Cells Counted 100
[2022-01-06 11:32] LABS: Calcium 6.8 MG/DL (8.5-10.1)
[2022-01-06 11:38] LABS: Potassium 2.5 MMOL/L (3.5-5.1)
[2022-01-06] MEDS: POTASSIUM CHLORIDE RIDER 10 MEQ/100 ML PREMIX IV PRN ×6 (11:44→21:43)
[2022-01-06] MEDS: SODIUM CHLORIDE 0.45% 1,000 ML IV SCH (14:49)
[2022-01-06] MEDS: VANCOMYCIN INJ 750 MG in SODIUM CHLORIDE 0.9% 250 ML IV SCH (18:20)
[2022-01-06] MEDS: MIRTAZAPINE 15 MG TABLET PO SCH (21:43)
[2022-01-06] MEDS: ROSUVASTATIN 20 MG TABLET PO SCH (21:43)
[2022-01-07] MEDS: PIPERACILLIN/TAZOBACTAM 3,375 MG in SODIUM CHLORIDE 0.9% 100 ML IV SCH ×2 (00:47→10:09)
[2022-01-07] MEDS: PANTOPRAZOLE 40 MG TABLET PO SCH (06:09)
[2022-01-07] MEDS: amLODIPine 5 MG TABLET PO SCH (09:47)
[2022-01-07] MEDS: NYSTATIN 500,000 UNIT/5 ML UDCUP SWISH/SWAL SCH ×4 (09:47→21:35)
[2022-01-07] MEDS: ASPIRIN EC 325 MG TABLET PO SCH (09:47)
[2022-01-07] MEDS: FERROUS SULFATE 325 MG TABLET PO SCH (09:47)
[2022-01-07] MEDS: INSULIN LISPRO 100 UNIT/ML SUBCUT SCH ×4 (09:47→20:26)
[2022-01-07] MEDS: ACEBUTOLOL 200 MG CAPSULE PO SCH (09:48)
[2022-01-07] MEDS: CHOLECALCIFEROL 5,000 UNIT TABLET PO SCH (09:48)
[2022-01-07] MEDS: CALCIUM (CARBONATE) 500 MG TABLET PO SCH ×2 (09:48→21:35)
[2022-01-07] MEDS: SODIUM HYPOCHLORITE 0.25% IRRIG 473 ML BOTTLE TOP SCH (10:10)
[2022-01-07] MEDS: MORPHINE 2 MG/1 ML SYRINGE IV PRN ×2 (10:10→23:35)
[2022-01-07] MEDS: ZINC OXIDE PASTE 113 GM TUBE TOP SCH ×2 (10:10→21:38)
[2022-01-07 14:16] LABS: Calcium 6.8 MG/DL (8.5-10.1); Osmolality,Calculated 285.7 MOS/KG (273-304); Potassium 3.1 MMOL/L (3.5-5.1)
[2022-01-07] MEDS: ROSUVASTATIN 20 MG TABLET PO SCH (21:35)
[2022-01-07] MEDS: MIRTAZAPINE 15 MG TABLET PO SCH (21:35)
[2022-01-07] MEDS: POTASSIUM CHLORIDE 20 MEQ TABLET PO PRN (21:35)
[2022-01-08] MEDS: POTASSIUM CHLORIDE 20 MEQ TABLET PO PRN (05:20)
[2022-01-08] MEDS: PANTOPRAZOLE 40 MG TABLET PO SCH (05:20)
[2022-01-08] MEDS: INSULIN LISPRO 100 UNIT/ML SUBCUT SCH ×2 (10:50→13:25)
[2022-01-08] MEDS: FERROUS SULFATE 325 MG TABLET PO SCH (10:51)
[2022-01-08] MEDS: NYSTATIN 500,000 UNIT/5 ML UDCUP SWISH/SWAL SCH ×2 (10:51→13:25)
[2022-01-08] MEDS: SODIUM HYPOCHLORITE 0.25% IRRIG 473 ML BOTTLE TOP SCH (10:51)
[2022-01-08] MEDS: ASPIRIN EC 325 MG TABLET PO SCH (10:51)
[2022-01-08] MEDS: CHOLECALCIFEROL 5,000 UNIT TABLET PO SCH (10:52)
[2022-01-08] MEDS: amLODIPine 5 MG TABLET PO SCH (10:52)
[2022-01-08] MEDS: CALCIUM (CARBONATE) 500 MG TABLET PO SCH (10:52)
[2022-01-08] MEDS: ACEBUTOLOL 200 MG CAPSULE PO SCH (10:57)
[2022-01-08] MEDS: ZINC OXIDE PASTE 113 GM TUBE TOP SCH (10:57)
[2022-01-08 11:11] VITALS: BP 144/75
[2022-01-08] MEDS: MORPHINE 2 MG/1 ML SYRINGE IV PRN (13:39)
== END 2022-01-08 15:30 | disposition hospice, home (50) | DRG 264 ==
LOC: EDUNIT# → EDBD → N.ED 11:59 → N.3E 15:10 → SUATTDRO 15:10 → N.3E 17:25
PROVIDERS: ADMIT Internal Medicine Geriatric Medicine; ATTEND Emergency Medicine